=== PATIENT | female | born 1995 | race Caucasian/White ===

== ENCOUNTER 2020-05-09 16:46 | Emergency (ER) | payer BC, SELFPAY ==
--- NOTE | ~2020-05-09 | US_ITS ---
EXAMINATION: US OB <=14 wk fetus w TV DATE: 05/09/2020 19:06 INDICATION: Abdominal cramping. Bleeding. Approximately 6 weeks gestation. TECHNIQUE: Real-time transabdominal obstetric ultrasound. FINDINGS: No prior studies for comparison. The uterus measures 7.4 x 5.6 x 6.4 cm. There is an intrauterine gestational sac, with pole christin ntified. The crown rump length measures 0.26 cm, which correlates with a estimated gestational age o f 5 weeks 6 days. heart tones are identified measuring 113 BPM. Left ovary is unremarkable. R ight ovary not visualized. IMPRESSION: 1. SL IUP with an EGA of 5 weeks, 6 days (EDC by current ultrasound of 01/03/2021). Reviewed, dictated and finalized at location A. WORKER IMPRESSION: 1. SL IUP with an EGA of 5 weeks, 6 days (EDC by current ultrasound of ).
[2020-05-09 17:12] VITALS: BP 110/71; PULSE 81; RESP 18; TEMP 36.1; O2SAT 100
[2020-05-09 17:23] LABS: Basophils Absolute Auto 0.1 K/mm3 (0.0-0.1); Basophils Percent Auto 1.1 % (0.2-1.2); Eosinophils Absolute Auto 0.4 K/mm3 (0-0.3); Eosinophils Percent Auto 4.7 % (0-4.4); Hematocrit 34.6 % (37.0-47.0); Hemoglobin 11.5 g/dL (12.0-15.0); Immature Granulocyte Absolute 0.01 K/mm3 (0.00-0.031); Immature Granulocyte Percent A 0.1 % (0-0.5); Lymphocytes Absolute Auto 1.64 K/mm3 (0.9-3.2); Lymphocytes Percent Auto 21.6 % (18.3-44.2); Mean Corpuscular HGB Conc 33.2 g/dl (32-36); Mean Corpuscular Hemoglobin 29.9 pg (26-34); Mean Corpuscular Volume 89.9 fl (80-100); Mean Platelet Volume 10.9 fl (7.4-10.4); Monocytes Absolute Auto 0.6 K/mm3 (0.1-0.6); Monocytes Percent Auto 7.4 % (2.6-8.5); Neutrophils Absolute Auto 4.9 K/mm3 (1.3-6.7); Neutrophils Percent Auto 65.1 % (45.5-73.1); Platelet Count Result 225 k/mm3 (150-375); Red Blood Count 3.85 M/mm3 (4.2-5.4); Red Cell Distribution Width 12.4 % (11.5-14.5); White Blood Count 7.6 K/mm3 (4.5-10.0)
[2020-05-09 17:33] LABS: Prothrombin Time 13.6 Seconds (11.1-14.7)
--- NOTE | 2020-05-09 17:37 | ED.PREGNANCY ---
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 Reports she is about 6 weeks by LMP. Reports she had some cramping earlier today. Reports this afternoon she noted some bleeding which prompted her to be seen. Her OB is Dr. Villareal. Denies fever, vomiting, or dysuria. Related Data Home Medications Medication Instructions Recorded Confirmed vits no.130-ferrous fum 1 tablet PO DAILY 04/29/20 04/29/20 27 mg iron-folic acid 800 mcg tablet metoclopramide HCl 05/09/20 promethazine 05/09/20 pyridoxine (vitamin B6) 05/09/20 Allergies Allergy/AdvReac Type Severity Reaction Status Date / Time No Known Allergies Allergy Verified 05/09/20 17:16 Review of Systems Review of Systems: Narrative: CONSTITUTIONAL: Denies fever GASTROINTESTINAL: Reports pelvic cramping. GENITOURINARY: Denies dysuria or hematuria. All systems reviewed & are unremarkable except as noted in HPI and below PMFSH Past Medical History Medical History (Updated 05/09/20 @ 20:08 by Apple Minaya PA-C) Anxiety Back pain Chest pain Migraine Prolactinoma Tension headache Surgical History Surgical History Hx of tonsillectomy [place] teeth removed Social History Social History (Updated 01/21/20 @ 14:51 by Svetlana Hernández [facility]) Smoking status: Never smoker Alcohol intake: current Drinks per week: 1 Substance use: never Gender identity (if verbalized by the patient): Female Exam Narrative: Exam Narrative: GENERAL: Well-appearing, well-nourished, and in no acute distress. HEAD: Normocephalic, atraumatic. EYES: EOMI. CHEST: Clear to auscultation. No respiratory distress. No wheezes rales or rhonchi HEART: Regular rate and rhythm. No murmur heard. Normal peripheral pulses. ABDOMEN: Soft, nontender, nondistended, normal active bowel sounds. EXTREMITIES: Normal range of motion. No edema. SKIN: Warm, dry, no rash. NEURO: No focal deficits. Alert and oriented x3. PSYCH: Normal mood and affect PELVIC: Refused Course Vital Signs Vital signs: Vital Signs Temperature 97 F L 05/09/20 17:12 Pulse Rate 81 05/09/20 17:12 Respiratory Rate 18 05/09/20 17:12 Blood Pressure 110/71 05/09/20 17:12 Pulse Oximetry 100 05/09/20 17:12 Temperature 97 F L 05/09/20 17:12 Pulse Rate 84 05/09/20 17:50 Respiratory Rate 18 05/09/20 17:12 Blood Pressure 99/60 L 05/09/20 17:50 Pulse Oximetry 100 05/09/20 17:12 MDM - OB/Uterine Contractions MDM Narrative Medical decision making narrative: Patient presents the emergency department for vaginal spotting today. Is about 6 weeks by LMP. Patient is not orthostatic. CBC with hemoglobin of 11.5. Patient is A positive. UA with leuk esterase, 10-15 white blood cells and trace bacteria. Patient will be started on oral antibiotics. Ultrasound shows a single living IUP with an EGA of 5 weeks and 6 days. Patient updated on case findings. Patient refused pelvic exam, but reports no further bleeding in the ED. Spoke with Dr. Villareal about patient and work-up who would like to follow-up in clinic on Monday. Patient is stable and felt appropriate for further outpatient evaluation. She was given warnings to return to the ER Lab Data Attestation: I reviewed the patient's lab results. Result diagrams: 05/09/20 17:16 Labs: Lab Results 05/09/20 05/09/20 05/09/20 Range/Units 17:16 17:16 17:16 WBC 7.6 (4.5-10.0) K/mm3 RBC 3.85 L (4.2-5.4) M/mm3 Hgb 11.5 L (12.0-15.0) g/dL Hct 34.6 L (37.0-47.0) % MCV 89.9 (80-100) fl MCH 29.9 (26-34) pg MCHC 33.2 (32-36) g/dl RDW 12.4
[2020-05-09 17:49] VITALS: BP 94/57; BP 99/67; PULSE 77
[2020-05-09 17:50] VITALS: BP 99/60; PULSE 84
[2020-05-09 18:06] LABS: Add Urine Microscopic? YES; Appearance Urine Clear (Clear); Bacteria Urine Trace /hpf; Bilirubin Urine Negative (Negative); Blood Urine 2+ (Negative); Color Urine Colorless (Yellow); Glucose Urine UA Negative (Negative); Ketones Urine Negative (Negative); Leukocyte Esterase Ur 2+ LEU/UL (Negative); Mucus Urine Rare /lpf; Nitrate Urine Negative (Negative); Protein Urine Negative (Negative); RBC Urine 0-2 /hpf (0-2); Renal Epithelial Cells Urine Rare /hpf (None Seen); Specific Grav Ur 1.006 (1.001-1.035); Squamous Epithelial Cell Urine Few /hpf (Few); Urobilinogen Urine Negative mg/dL (<2.0)
[2020-05-09 20:25] VITALS: BP 117/80; PULSE 78; RESP 18; O2SAT 99
== END 2020-05-09 20:27 | disposition home or self-care (01) ==
PROVIDERS: Physician Assistant; Emergency Provider Emergency Medicine; PCP Family Medicine
DX: O20.0 Threatened abortion (principal); O26.891 Other specified pregnancy related conditions, first trimester; R82.71 Bacteriuria; Z3A.01 Less than 8 weeks gestation of pregnancy
CPT/HCPCS: 36415; 76801; 76817; 81001; 81025; 84702; 85025; 85461; 85610; 85730; 87077; 87086; 87088; 99284

== ENCOUNTER 2020-11-30 11:02 | Outpatient (CLI) | payer BC, SELFPAY ==
--- NOTE | ~2020-11-30 | XR_ITS ---
XR chest 2V DATE: 11/30/2020 11:28 INDICATION: Shortness of breath in TECHNIQUE: AP and lateral views with abdominal and pelvic shielding COMPARISON: 01/25/2017 PA chest FINDINGS: Normal heart size. No hilar or mediastinal enlargement. The lungs are clear of infiltrate o r consolidation. No pleural effusion or pulmonary vascular congestion or pneumothorax. IMPRESSION: Negative Reviewed, dictated and finalized at location A. IMPRESSION: Negative
== END 2020-11-30 11:03 | disposition home or self-care (01) ==
PROVIDERS: PCP Family Medicine; Visit Provider Student in an Organized Health Care Education/Training Program
DX: R06.02 Shortness of breath (principal); Z34.90 Encounter for supervision of normal pregnancy, unspecified, unspecified trimester; Z3A.00 Weeks of gestation of pregnancy not specified
CPT/HCPCS: 71046

== ENCOUNTER 2020-12-10 12:15 | Observation (INO) | payer BC, SELFPAY ==
[2020-12-10 12:46] VITALS: BP 107/71; PULSE 84
[2020-12-10 13:30] LABS: Add Urine Microscopic? YES; Appearance Urine Cloudy (Clear); Bilirubin Urine Negative (Negative); Blood Urine Negative (Negative); Color Urine Amber (Yellow); Glucose Urine UA Negative (Negative); Ketones Urine 1+ mg/dL (Negative); Leukocyte Esterase Ur Negative LEU/UL (NEGATIVE); Mucus Urine Rare /lpf; Nitrate Urine Negative (Negative); Protein Urine 1+ mg/dL (Negative); Specific Grav Ur 1.029 (1.001-1.035); Squamous Epithelial Cell Urine Many /hpf (Few); WBC Urine 0-3 /hpf (0-3)
--- NOTE | 2020-12-21 12:10 | P.PNOB_ITS ---
OB - Triage/Final Diagnosis Visit Information Comments/Additional reasons for admission: I have assessed the risk for this patient, Bea Durbin, and determined that she would benefit from observation care. Evaluation Laboratory results: Laboratory Tests 12/10/20 13:11 Urine Color Nikole Urine Appearance Cloudy H Urine pH 7.0 Ur Specific [place] 1.029 Urine Protein 1+ H Urine Glucose (UA) Negative Urine Ketones 1+ H Ur Blood (Man) Negative Urine Nitrate Negative Urine Bilirubin Negative Urine Urobilinogen 2.0 H Ur Leukocyte Esterase Negative Urine WBC 0-3 Ur Squamous Epith Cells Many H Urine Mucus Rare Final Diagnosis (1) Irregular uterine contractions: Code(s): O47.9 - False labor, unspecified Status: Acute
== END 2020-12-10 14:15 | disposition home or self-care (01) ==
PROVIDERS: Admitting Provider Student in an Organized Health Care Education/Training Program; Visit Provider Obstetrics & Gynecology
DX: O47.03 False labor before 37 completed weeks of gestation, third trimester (principal); Z3A.36 36 weeks gestation of pregnancy
CPT/HCPCS: 81001; 87077; 87086; 87088; G0378; G0379

== ENCOUNTER 2020-12-28 00:01 | Inpatient (IN) | payer BC, SELFPAY ==
[2020-12-28] VITALS (194 sets, daily range): BP systolic 81–147; BP diastolic 40–96; PULSE 67–250; RESP 16; TEMP 36.2–37.1; O2SAT 93–100; BMI 29.0
[2020-12-28 01:28] LABS: Basophils Percent Auto 0.4 % (0.2-1.2); Eosinophils Absolute Auto 0.2 K/mm3 (0-0.3); Eosinophils Percent Auto 2.4 % (0-4.4); Hematocrit 39.1 % (37.0-47.0); Hemoglobin 12.8 g/dL (12.0-15.0); Immature Granulocyte Absolute 0.03 K/mm3 (0.00-0.031); Immature Granulocyte Percent A 0.4 % (0-0.5); Lymphocytes Absolute Auto 1.52 K/mm3 (0.9-3.2); Lymphocytes Percent Auto 19.4 % (18.3-44.2); Mean Corpuscular HGB Conc 32.7 g/dl (32-36); Mean Corpuscular Hemoglobin 30.3 pg (26-34); Mean Corpuscular Volume 92.4 fl (80-100); Mean Platelet Volume 11.6 fl (7.4-10.4); Monocytes Absolute Auto 0.7 K/mm3 (0.1-0.6); Monocytes Percent Auto 9.3 % (2.6-8.5); Neutrophils Absolute Auto 5.3 K/mm3 (1.3-6.7); Neutrophils Percent Auto 68.1 % (45.5-73.1); Platelet Count Result 194 k/mm3 (150-375); Red Blood Count 4.23 M/mm3 (4.2-5.4); Red Cell Distribution Width 16.7 % (11.5-14.5); White Blood Count 7.8 K/mm3 (4.5-10.0)
[2020-12-28] MEDS: miSOPROStol 25 MCG TABLET VAGINAL (01:45)
[2020-12-28] MEDS: LACTATED RINGERS 1,000 ML 125 ML IV CONT ×3 (02:09→12:19)
[2020-12-28] MEDS: AMPICILLIN 2 GM/NS 100 ML 2 GM/100 ML BAG IVPB (02:10)
--- NOTE | 2020-12-28 02:24 | LDADM ---
This patient, Bea Durbin, was admitted to Labor/Delivery/Recovery 107 on 12/28/20 at 00:01. Plans for labor, pain management and were discussed with patient. Patient/family oriented to hospital policies and general routines including ID bracelet, bed and alarms, visiting hours, pain management, procedures, bathroom and other care routines, personal items, smoking policy, room service/diet and guest tray routines, infant security routines, and visiting hours. Patient/Family are encouraged to report perceived risks to care and to ask questions if they do not understand what they are told or what they should do. See OBIX for further documentation.
[2020-12-28] MEDS: AMPICILLIN 1 GM/NS 50 ML 1 GM/50 ML BAG IVPB ×3 (06:29→14:01)
--- NOTE | 2020-12-28 07:25 | WPDHPUPDATE1 ---
History and Physical Update Update Date/Time: 12/28/20 07:25 25 yo at 39w1 who presents for elective IOL. Pt endorses good FM. She reports occasional contractions. She denies any leakage of fluid. Her is uncomplicated thus far. History and Physical has been reviewed, including an updated exam of the patient. There are NO changes in the patient's condition. Risks, benefits, and alternatives have been discussed and questions answered. Patient agrees to proceed with procedure. A/P: 25 yo at 39w1d who presents for IOL admit to L&D routine admission orders Rh+ GBS UTI +, will give PCN in labor FHT cat 1 plan for cytotec IOL
[2020-12-28 08:36] LABS: Rapid Plasma Reagin Non-Reactive (NonReactive)
--- NOTE | 2020-12-28 08:37 | PC.NURSE ---
[id number]- was called around 0620 by Tiago SOLIS to inform pt did not tolerate first placement of cytotec well and she was unsure if it was placed correctly. Order received to hold second dose until pt gets an epidural. Anesthesia was informed of order and will place it in order of need. aware.
--- NOTE | 2020-12-28 09:51 | WPDANESEPPF ---
Anes - Initial Pre Proc Eval Date/Time: 12/28/20 09:51 Surgeon: Rex Villareal MD Pre Op Diagnosis: IOL Patient Data Age: 25 Gender: F Height: 1.57 m Weight: 72 kg Last Vital Signs Pulse 76 12/28/20 09:15 BP 98/60 L 12/28/20 09:15 Pulse Ox 98 12/28/20 09:27 Allergies Allergy/AdvReac Type Severity Reaction Status Date / Time No Known Allergies Allergy Verified 05/09/20 17:16 Home Medications Medication Instructions Recorded Confirmed Type vits no.130-ferrous fum 1 tablet PO DAILY 04/29/20 12/24/20 History 27 mg iron-folic acid 800 mcg tablet ergocalciferol (vitamin D2) 1,250 mcg PO WEEKLY 12/24/20 12/24/20 History [Vitamin D2] sertraline 25 mg PO DAILY 12/24/20 12/24/20 History Laboratory Tests 12/28/20 12/28/20 12/28/20 01:11 01:11 01:11 WBC 7.8 K/mm3 K/mm3 (4.5-10.0) RBC 4.23 M/mm3 M/mm3 (4.2-5.4) Hgb 12.8 g/dL g/dL (12.0-15.0) Hct 39.1 % % (37.0-47.0) MCV 92.4 fl fl (80-100) MCH 30.3 pg pg (26-34) MCHC 32.7 g/dl g/dl (32-36) RDW 16.7 % H % (11.5-14.5) Plt Count 194 k/mm3 k/mm3 (150-375) MPV 11.6 fl H fl (7.4-10.4) Immature Gran % (Auto) 0.4 % % (0-0.5) Neut % (Auto) 68.1 % % (45.5-73.1) Lymph % (Auto) 19.4 % % (18.3-44.2) Summers % (Auto) 9.3 % H % (2.6-8.5) Eos % (Auto) 2.4 % % (0-4.4) Baso % (Auto) 0.4 % % (0.2-1.2) Lymph # (Auto) 1.52 K/mm3 K/mm3 (0.9-3.2) Summers # (Auto) 0.7 K/mm3 H K/mm3 (0.1-0.6) Eos # (Auto) 0.2 K/mm3 K/mm3 (0-0.3) Baso # (Auto) 0.0 K/mm3 K/mm3 (0.0-0.1) Abs Immat Gran (auto) 0.03 K/mm3 K/mm3 (0.00-0.031) Absolute Neuts (auto) 5.3 K/mm3 K/mm3 (1.3-6.7) Absolute Nucleated RBC 0.0 K/mm3 K/mm3 (0.0-0.012) Nucleated RBC % 0.0 % % (0.0-0.2) RPR Non-reactive (NonReactive) Blood Type A Positive Antibody Screen Negative Patient hx anesthesia problems: none Family hx anesthesia problems: none PMFSH Past Medical History Medical History (Updated 12/21/20 @ 12:10 by Chidi Laws MD) Anxiety Back pain Chest pain Irregular uterine contractions Migraine Prolactinoma Tension headache Surgical History Surgical History Hx of tonsillectomy [place] teeth removed Family History Family History (Updated 12/24/20 @ 15:27 by Aniceto Boyle RN) Other No pertinent family history Social History Social History (Updated 01/21/20 @ 14:51 by Svetlana Hernández [facility]) Smoking status: Never smoker Alcohol intake: current Drinks per week: 1 Alcohol use details: Wine Substance use: never Gender identity (if verbalized by the patient): Female Spiritual care concerns: No Anes - Eval Final PreProcedure Day of Procedure 12/28/20 09:52 Patient weight: overweight Heart: regular rate and rhythm Lungs: clear to auscultation and normal air movement Airway: Mallampati scale class II Neurological: alert and oriented Last oral intake: >/= 8 hours ASA classification: II Emergent: no Anesthetic plan: proceed Anesthesia type and monitoring: regional epidural Informed Consent: The patient's anesthetic plan and its attendant risks and benefits were discussed with the patient/family/POA. Questions were solicited and answers provided to the satisfaction of the patient/family/POA.
[2020-12-28] MEDS: ONDANSETRON INJ 4 MG/2 ML VIAL IV PUSH (10:59)
[2020-12-28] MEDS: OXYTOCIN 30 UNITS/NS 500 ML 30 UNITS/500 ML BAG 6 UNITS IV CONT (11:43)
--- NOTE | 2020-12-28 12:10 | PM.OBPNLAB ---
Pain Control Date/time seen: 12/28/20 12:10 Pain control: epidural Comments: pt comfortable with epidural Pelvic Exam Dilation (cm): 2 Effacement (%): 70 station: -3 Amniotic membrane status: Intact Contractions Contraction frequency: 4 Contraction pattern: Regular Status status: Category l Assessment and Plan Comments: cervical balloon was placed and put on traction. Pitocin augmentation started.
--- NOTE | 2020-12-28 18:04 | PM.OBPRVD ---
OB - Delivery Note Procedure Delivery date: 12/28/20 Procedure: Patient pushed for a spontaneous vaginal delivery. The fetus was delivered atraumatically and placed on the maternal abdomen. The cord was clamped and cut after 1 minute of life. The cord was double clamped and cut and a segment of cord was collected for cord gases. Cord blood was collected for blood type and Coomb's testing. The placenta delivered spontaneously and was noted to be intact. The perineum was inspected and there was a deep 2nd degree perineal laceration. The rectal sphincter was examined and noted to be intact. The deep space of the laceration was re-approximated with 3 interrupted 2-0 vicryl sutures. The remainder of the laceration was repaired with 3-0 vicryl in the usual fashion. The uterus was firm and good hemostasis was noted. The patient and fetus were stable in the delivery room. Intrapartal events: None Induction method: per misoprostol protocol Delivery augmentation: rupture of membranes and pitocin Delivery monitor: external FHT Route of delivery: Episiotomy description: None Laceration Description: Perineal - 2nd Degree and Vaginal - 2nd Degree Delivery repair: vicryl Specimen: No Quantitative Blood Loss (ml): 250 Anesthesia type: Epidural Disposition: floor () Complications: No immediate complications Baby Date of : 12/28/20 Time of : 17:35 Weeks of gestation at delivery: 39 Infant gender: Male Weight (pounds): 8 Weight (ounces): 11 presentation: vertex position: Right Occiput Anterior Placenta delivery description: Spontaneous cord vessel description: 3 Vessels score one minute: 8 score five minutes: 9
[2020-12-28] MEDS: OXYTOCIN 30 UNITS/NS 500 ML 30 UNITS/500 ML BAG 125 UNITS IV CONT (18:29)
[2020-12-28] MEDS: IBUPROFEN 600 MG TABLET PO (19:00)
[2020-12-28] MEDS: HYDROcodone/acetaminophen (*CRX) 10-325 MG TABLET 1 TAB PO (21:10)
--- NOTE | 2020-12-28 21:22 | OBPPTRN ---
Patient transferred to post room #282 via wheelchair. Support person present. Oriented to unit, room, information board, rooming in, admission packet and security measures. Patient verbalizes understanding.
[2020-12-28] MEDS: SERTRALINE HCL 25 MG TABLET PO (21:59)
[2020-12-29] VITALS: BP 98/63; PULSE 57; RESP 16; TEMP 37; O2SAT 96
[2020-12-29] MEDS: IBUPROFEN 600 MG TABLET PO ×3 (02:06→13:48)
[2020-12-29] MEDS: HYDROcodone/acetaminophen (*CRX) 10-325 MG TABLET 1 TAB PO (03:07)
[2020-12-29 04:30] VITALS: BP 90/50; PULSE 75; RESP 16; TEMP 36.8; O2SAT 95
[2020-12-29 05:58] LABS: Hematocrit 34.3 % (37.0-47.0)
--- NOTE | 2020-12-29 07:51 | PM.OBDSVD ---
DS: Admitting Diagnosis Admitting Diagnosis intrauterine at term elective induction of labor OB - DS: Summary OB Procedures : None OB Procedures Intrapartum: Spontaneous Vag Delivery OB Procedures: : None Status at Discharge Functional status at discharge: independent ambulation Overall status at discharge: patient is back to baseline Time Spent with Patient Time attestation: Total time spent providing and/or coordinating discharge services: Time spent: Less than 30 minutes Exam Const: General: comfortable and no acute distress Resp: Effort & Inspection: normal respiratory effort Auscultation: clear to auscultation bilaterally Cardio: Rate: regular rate GI: GI Palp: Yes Soft to palpation Auscultation: normal bowel sounds Other: Fundus firm below umbilicus Psych: Appearance: grossly normal Mental Status: mental status grossly normal Affect: normal affect DS: Data Data Completed and Pending Labs on day of discharge: Labs from last 24 hours 12/29/20 12/28/20 05:04 01:11 Hgb 11.0 L Hct 34.3 L RPR Non-reactive Discharge Plan Discharge Consulting providers: Magan Johnson Discharging Clinician: Rex Villareal Patient Disposition: Home, Self-Care Activity: as tolerated and pelvic rest Diet: regular Discharge Instructions: call or return for temperature >100.4, bleeding >2 pads/hr for 2 hrs, pain not controlled with medications, signs/symptoms of mastitis Patient Instructions: Antibiotic Form, Vaginal Delivery (DC) Stand Alone Forms: General Discharge Information Follow-up/Referrals: Rex Villareal MD [Physician] - 4 Weeks Discharge Medications: New hydrocodone-acetaminophen 5-325 mg tablet 1 tablet PO Q6H PRN (Reason: pain) Qty: 28 RF: 0 docusate sodium 100 mg Capsule 100 mg PO BID PRN (Reason: Constipation) Qty: 60 RF: 0 ibuprofen 600 mg Tablet 600 mg PO Q6H PRN (Reason: Cramping) Qty: 30 RF: 0 acetaminophen [Mapap (acetaminophen)] 325 mg Tablet 650 mg PO Q6H PRN (Reason: Mild Pain (1-3) Or Headache) Qty: 30 RF: 0 Continued Vitamin 27 mg iron- 800 mcg tablet 1 tablet PO DAILY RF: 0 sertraline 25 mg Tablet 25 mg PO DAILY RF: 0 ergocalciferol (vitamin D2) [Vitamin D2] 1,250 mcg (50,000 unit) Capsule 1,250 mcg PO WEEKLY RF: 0 Date of admission: 12/28/20 00:01 Primary Care Provider: PHYSICIAN,EXERCISE INSTRUCTOR Admitting Provider: Rex Villareal Attending physician on admission: Rex Villareal Condition: Stable
[2020-12-29 08:05] VITALS: BP 90/57; PULSE 82; RESP 16; TEMP 36.2; O2SAT 97
[2020-12-29] MEDS: HYDROcodone/acetaminophen (*CRX) 5-325 MG TABLET 1 TAB PO ×2 (08:33→13:49)
[2020-12-29] MEDS: DOCUSATE SODIUM 100 MG CAPSULE PO (08:34)
[2020-12-29] MEDS: WITCH HAZEL 40 PADS 1 PAD TOPICAL (08:34)
--- NOTE | 2020-12-29 09:15 | WPDANLDPN2 ---
Anes-Prog Note L&D Date/Time: 12/29/20 09:15 Comfortable throughout: labor and delivery Neuraxial method: epidural Epidural/Spinal procedure site: clean & non-tender Neuro status: Neuro function grossly intact. Cardiovascular status: normal Respiratory status: normal Airway patency: baseline Mental status: baseline Post-Op hydration status: normal Vital Signs: Last Vital Signs Temp 36.8 C 12/29/20 04:30 Pulse 75 12/29/20 04:30 Resp 16 12/29/20 04:30 BP 90/50 L 12/29/20 04:30 Pulse Ox 95 12/29/20 04:30 Pain score (VAS): 0 I/O: Intake & Output 12/28/20 12/29/20 12/29/20 23:59 07:59 15:59 Intake Total 500 Output Total 325 Balance 175 Post-procedural complaints: none Patient feedback: Patient satisfied with anesthetic care.
[2020-12-29 12:09] VITALS: BP 82/43; PULSE 85; RESP 16; TEMP 36.4; O2SAT 97
[2020-12-29] MEDS: NEOMYCIN/POLYMYXIN/BACITRACIN OINTMENT 15 GM TUBE 1 APPLIC TOPICAL (13:48)
--- NOTE | 2020-12-29 15:00 | PC.NURSE ---
Patient viewed the discharge video Mother & Baby Care, The First Two Weeks . Patient was given the opportunity and encouraged to ask questions. Patient verbalized understanding of information shared and has been given the mother/baby guide for home reference.
[2020-12-29 16:00] VITALS: BP 114/78; PULSE 68; RESP 18; TEMP 36.6
--- NOTE | 2020-12-29 16:08 | PC.NURSE ---
Self care and infant care discharge instructions given including follow up visit date and time. Pt. verbalized understanding. No questions or concerns voiced. Very pleasant and cooperative. FOB at side.
[2020-12-31 08:32] VITALS: BP 96/59; PULSE 84; RESP 18; TEMP 37.3
== END 2020-12-29 18:20 | disposition home or self-care (01) | DRG 807 ==
LOC: ANHLDR 00:13 → ANHOB2 22:36
PROVIDERS: Admitting Provider Student in an Organized Health Care Education/Training Program; Visit Provider Student in an Organized Health Care Education/Training Program
DX: O99.824 Streptococcus B carrier state complicating childbirth (principal); Z37.0 Single live birth; Z3A.39 39 weeks gestation of pregnancy; O70.1 Second degree perineal laceration during delivery; O77.0 Labor and delivery complicated by meconium in amniotic fluid; O99.344 Other mental disorders complicating childbirth; F41.9 Anxiety disorder, unspecified; O99.62 Diseases of the digestive system complicating childbirth; K21.9 Gastro-esophageal reflux disease without esophagitis
CPT/HCPCS: 36415; 85014; 85018; 85025; 86592; 86850; 86900; 86901; A9270; J0290; J2405; J2590; J2795; J7120

== ENCOUNTER 2021-10-17 13:08 | Emergency (ER) | payer OTHER, SELFPAY ==
[2021-10-17 13:16] VITALS: BP 102/64; PULSE 89; RESP 18; TEMP 36.4; O2SAT 100
--- NOTE | 2021-10-17 13:16 | ED.URI ---
HPI - URI/Sore Throat General Chief Complaint: Upper Respiratory Infection Stated Complaint: sinus issue Time Seen by Provider: 10/17/21 13:18 Source: patient and RN notes reviewed Mode of arrival: ambulatory Limitations: no limitations History of Present Illness HPI Narrative: 26-year-old female presents to the [facility] with complaints of sinus congestion for 3-4 days. Has tried an unknown [id number] product 1 day without relief. Denies fevers. Denies chest pain or abdominal pain. No shortness of breath. Denies cough. Reports sinus congestion and bilateral ear pressure. Has a history of tubes as a child MD elicited complaint: nasal congestion Onset (ago): day(s) (3-4) Description of mucous: clear Related Data Home Medications Medication Instructions Recorded Confirmed No Home Medications 10/17/21 10/17/21 Allergies Allergy/AdvReac Type Severity Reaction Status Date / Time No Known Allergies Allergy Verified 10/17/21 13:16 Review of Systems Review of Systems: All systems reviewed & are unremarkable except as noted in HPI and below Constitutional: Constitutional: Reports no additional constitutional complaints, Denies chills and Denies fever(s) Eyes: Eyes: Reports no additional eye complaints ENT: Reports as per HPI, Reports nasal congestion and Denies sore throat Cardiovascular: Cardiovascular: Reports no additional cardiovascular complaints Respiratory: Respiratory: Reports no additional respiratory complaints Gastrointestinal: Gastrointestinal: Reports no additional gastrointestinal complaints Musculoskeletal: Musculoskeletal: Reports no additional musculoskeletal complaints Integumentary/Breasts: Skin/Breast: Reports system reviewed and no additional complaints, except as docu Neurologic: Reports system reviewed and no additional complaints, except as documented Psychiatric: Psychiatric: Reports no additional psychiatric complaints Allergic/Immunologic: Allergic/Immunologic: Reports no additional allergic/immunologic complaints [facility] Past Medical History Medical History Anxiety Back pain Chest pain Irregular uterine contractions Migraine Prolactinoma Tension headache Surgical History Surgical History Hx of tonsillectomy [place] teeth removed Family History Family History Other No pertinent family history Social History Social History Alcohol intake: current Drinks per week: 1 Alcohol use details: Wine Substance use: never Gender identity (if verbalized by the patient): Female Spiritual care concerns: No Comments At the time of my signature, I reviewed and agree with the nursing past medical, surgical, social, and family history. There is no relevant family history pertinent to the patient complaint. Exam Const: General: healthy appearing, no acute distress and alert Nutritional Appearance: well nourished Orientation/consciousness: patient oriented x3 Limitations: no limitations HENMT: Head: normal to inspection Ears: external ears normal, EAC's normal and TM abnormal with fluid behind the TM bilateral and scarred bilateral (Tubes as a child); not erythematous and with no loss of landmarks Throat: uvula midline, postnasal drainage and tonsils absent Eyes: General: appearance normal, both eyes and all related structures Pupils: Equal, round and reactive pupils present Neck: Neck: normal visual inspection, no lymphadenopathy and no meningeal signs Chest: Chest palpation & inspection: normal inspection of the chest Resp: Effort & Inspection: normal respiratory effort and no use of accessory muscles Auscultation: clear to auscultation bilaterally, no crackles, no rales, no rhonchi and no wheezes Cardio: Rate: regular rate Rhy
[2021-10-17 13:18] VITALS: BP 102/64; PULSE 89; RESP 18; TEMP 36.4; O2SAT 100
== END 2021-10-17 13:46 | disposition home or self-care (01) ==
PROVIDERS: Emergency Provider Nurse Practitioner; PCP Family Medicine
DX: J06.9 Acute upper respiratory infection, unspecified (principal)
CPT/HCPCS: 87804; 99212; G0463

== ENCOUNTER 2022-03-20 10:31 | Outpatient (CLI) | payer OTHER, SELFPAY ==
--- NOTE | ~2022-03-20 | MR_ITS ---
EXAMINATION: MR pituitary wo/w con DATE: 03/20/2022 11:30 INDICATION: Prolactinoma. Migraine headache. TECHNIQUE: Magnetic resonance imaging (MRI) of the brain and brainstem was performed without and with 13 mL MultiHance intravenous contrast. COMPARISON: Brain MRI 11/24/2016, head CT 11/24/2016 FINDINGS: The pituitary is normal in size with height of 5 mm. The infundibulum is at the midline. Th ere is no intracranial hemorrhage, acute infarction, or abnormal intracranial mass lesion. The ventri cles are normal in size. There is mild mucosal thickening in the ethmoid sinuses. The orbits are norm al. The mastoid air cells are normal. IMPRESSION: 1. Normal pituitary. Normal brain. Reviewed, dictated and finalized at location A. ER MACHINE HAND
== END 2022-03-20 10:32 | disposition home or self-care (01) ==
PROVIDERS: PCP Family Medicine; Visit Provider Family Medicine
DX: E23.0 Hypopituitarism (principal); D35.2 Benign neoplasm of pituitary gland
CPT/HCPCS: 70553; A9577

== ENCOUNTER 2022-08-08 13:20 | Outpatient (CLI) | payer OTHER, SELFPAY ==
[2022-08-08 14:55] LABS: Beta HCG Quantitative < 2.39 mIU/ML
== END 2022-08-08 13:21 | disposition home or self-care (01) ==
LOC: ANHLAB 13:22
PROVIDERS: PCP Family Medicine; Visit Provider Student in an Organized Health Care Education/Training Program
DX: N92.6 Irregular menstruation, unspecified (principal)
CPT/HCPCS: 36415; 84702

== ENCOUNTER 2022-11-03 09:31 | Emergency (ER) | payer OTHER, SELFPAY ==
--- NOTE | ~2022-11-03 | XR_ITS ---
XR hand LT 2V 11/03/2022 11:24 INDICATION: Possible foreign body left hand PROCEDURE: 3 views left hand COMPARISON: No prior studies FINDINGS: Fracture, dislocation or subluxation is not identified. The soft tissues appear within norm al limits. No foreign bodies are identified. IMPRESSION: 1: NO ACUTE BONE OR JOINT ABNORMALITY IDENTIFIED. Reviewed, dictated and finalized at location L.
[2022-11-03 09:34] VITALS: BP 108/59; PULSE 81; RESP 18; TEMP 36.6; O2SAT 99
[2022-11-03 10:57] LABS: HIV 1/2 Ab P24 Ag Result Negative (Negative)
[2022-11-03] MEDS: TETANUS,DIPHTHERIA,AC PERTUSSIS ADULT (0.5 ML) BOOSTRIX IM (11:09)
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
[2022-11-03] MEDS: ONDANSETRON HCL ODT 4 MG TABLET PO (11:37)
[2022-11-03] MEDS: HYDROcodone/acetaminophen (*CRX) 5-325 MG TABLET 1 TAB PO (11:37)
[2022-11-03 12:18] LABS: Basophils Absolute Auto 0.1 K/mm3 (0.0-0.1); Basophils Percent Auto 1.6 % (0.2-1.2); Eosinophils Absolute Auto 0.4 K/mm3 (0-0.3); Eosinophils Percent Auto 6.3 % (0-4.4); Hematocrit 41.3 % (37.0-47.0); Hemoglobin 13.3 g/dL (12.0-15.0); Immature Granulocyte Absolute 0.01 K/mm3 (0.00-0.031); Immature Granulocyte Percent A 0.2 % (0-0.5); Lymphocytes Percent Auto 26.2 % (18.3-44.2); Mean Corpuscular HGB Conc 32.2 g/dl (32-36); Mean Corpuscular Hemoglobin 29.6 pg (26-34); Mean Corpuscular Volume 91.8 fl (80-100); Mean Platelet Volume 11.9 fl (7.4-10.4); Monocytes Absolute Auto 0.3 K/mm3 (0.1-0.6); Monocytes Percent Auto 5.4 % (2.6-8.5); Neutrophils Absolute Auto 3.5 K/mm3 (1.3-6.7); Neutrophils Percent Auto 60.3 % (45.5-73.1); Platelet Count Result 227 k/mm3 (150-375); White Blood Count 5.7 K/mm3 (4.5-10.0)
[2022-11-03 12:26] LABS: Alanine Aminotransferase 20 U/L (6-35); Alkaline Phosphatase 69 U/L (38-126); Anion Gap 6 mmol/L (8-16); Aspartate Amino Transferase 21 U/L (14-36); Bilirubin,Total 0.4 mg/dL (0.2-1.3); Blood Urea Nitrogen 6 mg/dL (7-17); Calcium 8.4 mg/dL (8.4-10.2); Carbon Dioxide 30 mmol/L (22-30); Chloride 104 mmol/L (98-107); Estimated CRCL calculation 78 ml/min; Estimated Glomerular Filt Rate > 60; Glucose 88 mg/dL (65-110); Potassium 4.1 mmol/L (3.4-5.0); Sodium 140 mmol/L (137-145)
[2022-11-03] MEDS: RALTEGRAVIR 400 MG TABLET PO (13:15)
[2022-11-03] MEDS: EMTRICITABINE-TENOFOVIR 100 MG-150 MG TABLET 2 TAB PO (13:15)
[2022-11-03 14:01] LABS: Hepatitis C Virus Antibody Negative (Negative)
[2022-11-03 17:20] LABS: Hepatitis B Surface Anti Res Indeterminate
[2022-11-03 17:21] LABS: Hepatitis C Virus Antibody 0.01 S/C
== END 2022-11-03 13:22 | disposition home or self-care (01) ==
PROVIDERS: Emergency Medicine; Emergency Provider Physician Assistant; PCP Family Medicine
DX: L03.114 Cellulitis of left upper limb (principal); S61.432A Puncture wound without foreign body of left hand, initial encounter; Z23 Encounter for immunization; F41.9 Anxiety disorder, unspecified; Z90.49 Acquired absence of other specified parts of digestive tract; W46.1XXA Contact with contaminated hypodermic needle, initial encounter
CPT/HCPCS: 36415; 73120; 80053; 81025; 85025; 86703; 86706; 86803; 90471; 90715; 99283; A9270; G0432

== ENCOUNTER 2022-11-13 22:43 | Emergency (ER) | payer OTHER, SELFPAY ==
[2022-11-13 22:50] VITALS: BP 94/61; PULSE 108; RESP 14; TEMP 37.2; O2SAT 92
[2022-11-13 23:02] LABS: Basophils Absolute Auto 0.1 K/mm3 (0.0-0.1); Basophils Percent Auto 0.8 % (0.2-1.2); Eosinophils Absolute Auto 0.1 K/mm3 (0-0.3); Eosinophils Percent Auto 1.1 % (0-4.4); Hematocrit 38.6 % (37.0-47.0); Hemoglobin 12.6 g/dL (12.0-15.0); Immature Granulocyte Absolute 0.02 K/mm3 (0.00-0.031); Immature Granulocyte Percent A 0.2 % (0-0.5); Lymphocytes Absolute Auto 0.46 K/mm3 (0.9-3.2); Lymphocytes Percent Auto 4.2 % (18.3-44.2); Mean Corpuscular HGB Conc 32.6 g/dl (32-36); Mean Corpuscular Hemoglobin 28.9 pg (26-34); Mean Corpuscular Volume 88.5 fl (80-100); Mean Platelet Volume 10.6 fl (7.4-10.4); Monocytes Absolute Auto 0.7 K/mm3 (0.1-0.6); Monocytes Percent Auto 5.9 % (2.6-8.5); Neutrophils Absolute Auto 9.7 K/mm3 (1.3-6.7); Neutrophils Percent Auto 87.8 % (45.5-73.1); Platelet Count Result 220 k/mm3 (150-375); Red Blood Count 4.36 M/mm3 (4.2-5.4); Red Cell Distribution Width 12.9 % (11.5-14.5)
[2022-11-13 23:16] LABS: Alanine Aminotransferase 24 U/L (6-35); Albumin Level 4.1 g/dL (3.5-5.1); Alkaline Phosphatase 81 U/L (38-126); Anion Gap 8 mmol/L (8-16); Aspartate Amino Transferase 26 U/L (14-36); Bilirubin,Total 0.5 mg/dL (0.2-1.3); Blood Urea Nitrogen 9 mg/dL (7-17); Calcium 8.9 mg/dL (8.4-10.2); Carbon Dioxide 24 mmol/L (22-30); Chloride 104 mmol/L (98-107); Estimated CRCL calculation 82 ml/min; Estimated Glomerular Filt Rate > 60; Glucose 108 mg/dL (65-110); Potassium 3.7 mmol/L (3.4-5.0); Sodium 136 mmol/L (137-145)
[2022-11-13 23:33] LABS: Appearance Urine Cloudy (Clear); Bacteria Urine None Seen /hpf; Bilirubin Urine Negative (Negative); Blood Urine Negative (Negative); Color Urine Yellow (Yellow); Glucose Urine UA Negative (Negative); Ketones Urine Negative (Negative); Leukocyte Esterase Ur 1+ LEU/UL (Negative); Need Manual Microscopic Reviewed; Nitrate Urine Negative (Negative); Non Pathogenic Casts 0-2; Protein Urine Negative (Negative); RBC Urine 0-2 /hpf (0-2); Specific Grav Ur 1.004 (1.001-1.035); Squamous Epithelial Cell Urine None seen /hpf (Few); Urobilinogen Urine 0.2 mg/dL (<2.0); WBC Urine 0-5 /hpf; pH Urine 6.5 (5.0-9.0)
[2022-11-13 23:34] LABS: Add Urine Microscopic? YES
--- NOTE | 2022-11-13 23:56 | PC.NURSE ---
pt. to hotel front desk agent reporting she feels better. pt. states I am just going to follow up w/ pcp. Pt. ambulated out of ed w/ steady gait. NAD
== END 2022-11-14 00:51 | disposition left against medical advice (07) ==
PROVIDERS: Emergency Provider Emergency Medicine; PCP Family Medicine
DX: R10.9 Unspecified abdominal pain (principal)
CPT/HCPCS: 36415; 80053; 81001; 81025; 85025; 99199

== ENCOUNTER 2022-11-14 14:46 | Emergency (ER) | payer OTHER, SELFPAY ==
--- NOTE | ~2022-11-14 | CT_ITS ---
EXAMINATION: CT abdomen pelvis w con DATE: 11/14/2022 18:18 INDICATION: Right flank pain radiating into abdomen TECHNIQUE: Computed tomography (CT) of the abdomen and pelvis was performed with 100 CC Omnipaque 350 intravenous contrast. Automated exposure control and iterative reconstruction technique were employe d. Exam dose: 249.62 mGy-cm total exam DLP. COMPARISON: None. FINDINGS: The lung bases are clear. Normal heart size. No pericardial or pleural effusion. Right-sided pericardial cyst measures up to approximately 2.7 x 3.6 cm. Status post cholecystectomy. No hepatic, splenic, pancreatic, and adrenal or renal space-occupying mass lesion is evident. No bile duct or pancreatic duct dilatation. No urinary tract calculus or hydroureteronephrosis. Normal caliber of the abdominal aorta. No intraperitoneal or retroperitoneal or pelvic mass lesion or adenopathy or ascites. Retroverted uterus. 1.9 cm right adnexal cyst. Normal appendix. No bowel obstruction or free air. IMPRESSION: Echogenic calculus or hydroureteronephrosis Normal appendix 1.9 cm right adnexal cyst Reviewed, dictated and finalized at Location A. Reviewed, dictated and finalized at location A.
--- NOTE | ~2022-11-14 | US_ITS ---
US transvaginal DATE: 11/14/2022 20:11 INDICATION: Right pelvic pain. Evaluate for torsion. TECHNIQUE: Real-time imaging via transvaginal approach COMPARISON: None FINDINGS: Uterus measures 7.6 cm approximate height, 4.5 cm AP dimension. The central endometrial ech o complex measures approximately 5 mm AP dimension, normal. Right ovary measures 1.4 x 2.4 x 1.5 cm, with follicles present. There is vascular flow. The left ovary measures 1.6 x 2.3 x 1.5 cm, with follicles present and with vascular flow. Trace likely physiologic pelvic free fluid. IMPRESSION: Normal examination Reviewed, dictated and finalized at Location A. Reviewed, dictated and finalized at location A. IMPRESSION: Normal examination
[2022-11-14 14:59] VITALS: BP 103/72; PULSE 88; RESP 16; TEMP 37.2; O2SAT 100
[2022-11-14 15:30] LABS: Basophils Absolute Auto 0.1 K/mm3 (0.0-0.1); Basophils Percent Auto 0.6 % (0.2-1.2); Eosinophils Percent Auto 0.5 % (0-4.4); Hematocrit 36.7 % (37.0-47.0); Hemoglobin 12.1 g/dL (12.0-15.0); Immature Granulocyte Absolute 0.03 K/mm3 (0.00-0.031); Immature Granulocyte Percent A 0.4 % (0-0.5); Lymphocytes Percent Auto 10.9 % (18.3-44.2); Mean Corpuscular Hemoglobin 29.2 pg (26-34); Mean Corpuscular Volume 88.4 fl (80-100); Mean Platelet Volume 10.6 fl (7.4-10.4); Monocytes Percent Auto 12.3 % (2.6-8.5); Neutrophils Absolute Auto 6.2 K/mm3 (1.3-6.7); Neutrophils Percent Auto 75.3 % (45.5-73.1); Platelet Count Result 209 k/mm3 (150-375); Red Blood Count 4.15 M/mm3 (4.2-5.4); White Blood Count 8.2 K/mm3 (4.5-10.0)
[2022-11-14 15:45] LABS: Alanine Aminotransferase 35 U/L (6-35); Alkaline Phosphatase 80 U/L (38-126); Anion Gap 7 mmol/L (8-16); Aspartate Amino Transferase 43 U/L (14-36); Bilirubin,Total 0.7 mg/dL (0.2-1.3); Blood Urea Nitrogen 10 mg/dL (7-17); Calcium 8.3 mg/dL (8.4-10.2); Carbon Dioxide 24 mmol/L (22-30); Chloride 106 mmol/L (98-107); Estimated CRCL calculation 82 ml/min; Estimated Glomerular Filt Rate > 60; Glucose 97 mg/dL (65-110); Lipase 50 U/L (23-300); Potassium 3.5 mmol/L (3.4-5.0); Sodium 137 mmol/L (137-145)
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
[2022-11-14] MEDS: SODIUM CHLORIDE 0.9% IV 1,000 ML 999 ML IV CONT ×2 (18:02→20:06)
[2022-11-14] MEDS: ONDANSETRON INJ 4 MG/2 ML VIAL IV PUSH (18:02)
[2022-11-14] MEDS: MORPHINE SULFATE (*CRX) 4 MG/ML INJ IV PUSH (18:02)
[2022-11-14 18:05] VITALS: BP 90/58; PULSE 88; RESP 15; O2SAT 100
--- NOTE | 2022-11-14 18:14 | PC.NURSE ---
Pt to CT scan via stretcher at this time, fluids infusing.
[2022-11-14] MEDS: KETOROLAC 15 MG/ML VIAL (*BKC) IV PUSH (19:25)
[2022-11-14 19:28] VITALS: BP 92/60; PULSE 78; RESP 16; TEMP 36.3; O2SAT 100
[2022-11-14 19:46] LABS: Influenza A QL RT-PCR Negative (Negative); Influenza B QL RT-PCR Negative (Negative); SARS-CoV-2 RNA PCR Negative (Negative)
--- NOTE | 2022-11-14 22:23 | PC.NURSE ---
Nursing staff was going to discharge patient, however patient stated that she wanted to speak to EDP and that she didn't understand why she was being discharged with 7/10 pain. EDNP Apple Minaya aware.
[2022-11-14 22:34] VITALS: BP 100/62; PULSE 83; RESP 15; TEMP 36.7; O2SAT 99
== END 2022-11-14 22:34 | disposition home or self-care (01) ==
PROVIDERS: Emergency Medicine; Emergency Provider Physician Assistant; PCP Family Medicine
DX: R10.9 Unspecified abdominal pain (principal); Z20.822 Contact with and (suspected) exposure to COVID-19; Z90.49 Acquired absence of other specified parts of digestive tract; Z62.819 Personal history of unspecified abuse in childhood; N94.89 Other specified conditions associated with female genital organs and menstrual cycle
CPT/HCPCS: 36415; 74177; 76830; 80053; 81025; 83690; 85025; 87636; 96361; 96374; 96375; 99284; J1885; J2270; J2405; J7030; Q9967

== ENCOUNTER 2023-01-13 14:27 | Emergency (ER) | payer OTHER, SELFPAY ==
[2023-01-13 14:28] VITALS: BP 110/61; PULSE 97; RESP 18; TEMP 36.6; O2SAT 100
[2023-01-13] MEDS: diphenhydrAMINE HCl INJ 50 MG/ML VIAL IV PUSH (14:56)
[2023-01-13] MEDS: FAMOTIDINE 20 MG/2 ML VIAL IV PUSH (15:00)
[2023-01-13] MEDS: methylPREDNISolone SOD SUCC 125 MG VIAL IV PUSH (15:00)
[2023-01-13] MEDS: SODIUM CHLORIDE 0.9% IV 1,000 ML 999 ML IV CONT (15:00)
[2023-01-13] MEDS: LORazepam (*CRX) 0.5 MG TABLET PO (15:35)
[2023-01-13 15:50] VITALS: BP 130/71; PULSE 70; RESP 18; O2SAT 100
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
[2023-01-13 18:37] VITALS: BP 105/73; PULSE 75; RESP 18; O2SAT 98
== END 2023-01-13 18:20 | disposition home or self-care (01) ==
PROVIDERS: Emergency Provider Nurse Practitioner; PCP Family Medicine
DX: T78.40XA Allergy, unspecified, initial encounter (principal); F41.9 Anxiety disorder, unspecified; Z90.49 Acquired absence of other specified parts of digestive tract
CPT/HCPCS: 96361; 96374; 96375; 99284; A9270; J1200; J2930; J7030

== ENCOUNTER → 2023-07-07 13:43 | Outpatient (CLI) | payer BC, SELFPAY ==
--- NOTE | ~2023-07-07 | US_ITS ---
US breast BI complete INDICATION: Bilateral breast pain TECHNIQUE: Dedicated complete bilateral breast ultrasound including all 4 quadrants in the subareolar locations COMPARISON: Ultrasound dated 03/14/2014 FINDINGS: In the right breast is a slightly irregular shaped hypoechoic mass at 2:00, 2 cm from the n ipple measuring 7 mm with echogenic center and no internal vascularity. No suspicious masses or cysts are identified in the left breast to suggest malignancy. IMPRESSION: 1: Probable benign 7 mm lymph node of the right breast at 2:00, 2 cm from the nipple. Six-month follo w-up right breast ultrasound recommended. BI-RADS CATEGORY 3-PROBABLY BENIGN FINDING RECOMMENDATION: 6 month follow up recommended. Reviewed, dictated and finalized at location A. TING OPERATOR IMPRESSION: 1: Probable benign 7 mm lymph node of the right breast at 2:00, 2 cm from the n ipple. Six-month follow-up right breast ultrasound recommended. BI-RADS CATEGORY 3-PROBABLY BENIGN FINDING RECOMMENDATION: 6 month follow up recommended.
== END ==
PROVIDERS: PCP Family Medicine; Visit Provider Student in an Organized Health Care Education/Training Program
DX: N64.4 Mastodynia (principal); R92.8 Other abnormal and inconclusive findings on diagnostic imaging of breast
CPT/HCPCS: 76641

== ENCOUNTER 2023-09-08 11:07 | Emergency (ER) | payer BC, SELFPAY ==
--- NOTE | ~2023-09-08 | XR_ITS ---
EXAMINATION: XR shoulder RT min 2V DATE: 09/08/2023 12:00 INDICATION: Right shoulder pain. Fall. TECHNIQUE: 4 views of right shoulder were obtained. COMPARISON: None. FINDINGS: Bone alignment is normal. No fracture. Joint spaces are normal. IMPRESSION: 1. Normal right shoulder. Reviewed, dictated and finalized at location A. IMPRESSION: 1. Normal right shoulder.
--- NOTE | ~2023-09-08 | XR_ITS ---
EXAMINATION: XR elbow RT min 3V DATE: 09/08/2023 12:00 INDICATION: Right elbow pain. Fall. TECHNIQUE: 5 views of right elbow were obtained. COMPARISON: None. FINDINGS: Bone alignment is normal. No fracture. Joint spaces are normal. No elbow joint effusion. IMPRESSION: 1. Normal right elbow. Reviewed, dictated and finalized at location A. IMPRESSION: 1. Normal right elbow.
--- NOTE | ~2023-09-08 | XR_ITS ---
EXAMINATION: XR scapula RT DATE: 09/08/2023 12:00 INDICATION: Right scapula injury and pain. Fall downstairs. TECHNIQUE: 2 views of the right scapula on 3 radiographs were obtained. COMPARISON: None. FINDINGS: Bone alignment is normal. No fracture. Joint spaces are normal. IMPRESSION: 1. Normal right scapula. Reviewed, dictated and finalized at location A. IMPRESSION: 1. Normal right scapula.
[2023-09-08 11:13] VITALS: BP 92/65; PULSE 92; RESP 16; TEMP 36.8; O2SAT 100
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
--- NOTE | 2023-09-08 12:35 | PC.NURSE ---
PIPE [employer] PAINT TRIMMER at bedside discussing x-ray results.
== END 2023-09-08 12:49 | disposition home or self-care (01) ==
PROVIDERS: Emergency Provider Nurse Practitioner; PCP Family Medicine
DX: S46.911A Strain of unspecified muscle, fascia and tendon at shoulder and upper arm level, right arm, initial encounter (principal); S50.01XA Contusion of right elbow, initial encounter; W10.9XXA Fall (on) (from) unspecified stairs and steps, initial encounter; L64.9 Androgenic alopecia, unspecified
CPT/HCPCS: 73010; 73030; 73080; 99214; G0463

== ENCOUNTER 2023-12-25 13:46 | Emergency (ER) | payer BC, SELFPAY ==
--- NOTE | ~2023-12-25 | XR_ITS ---
EXAMINATION: [id number] DATE: 12/25/2023 14:21 INDICATION: Right chest pain. TECHNIQUE: A frontal view of the chest and 2 views on 3 radiographs of the right ribs were obtained. COMPARISON: Chest 2 views 11/30/2020 FINDINGS: There is no pneumonia, pleural effusion, or pneumothorax. The heart size is normal. Surgica l clips in the right upper quadrant are likely from cholecystectomy. IMPRESSION: 1. No rib fracture. Reviewed, dictated and finalized at location A. IMPRESSION: 1. No rib fracture.
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
[2023-12-25 14:06] VITALS: BP 100/75; PULSE 91; RESP 16; TEMP 36.7; O2SAT 100
[2023-12-25] MEDS: IBUPROFEN 400 MG TABLET 800 MG PO (14:25)
== END 2023-12-25 14:50 | disposition home or self-care (01) ==
PROVIDERS: Emergency Provider Nurse Practitioner Family; PCP Family Medicine
DX: R07.89 Other chest pain (principal); M54.6 Pain in thoracic spine; L64.9 Androgenic alopecia, unspecified
CPT/HCPCS: 71101; 99213; A9270; G0463

== ENCOUNTER 2024-03-21 16:59 | Emergency (ER) | payer BC, SELFPAY ==
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
[2024-03-21 17:21] VITALS: BP 97/72; PULSE 85; RESP 16; TEMP 36.6; O2SAT 100
[2024-03-21 17:42] LABS: EDUAAPPEAR Clear; EDUABILI Negative (Negative); EDUABLOOD Trace (Negative); EDUACOLOR1 Yellow; EDUAGLUCOSE Negative (Negative); EDUAKETONE Negative (Negative); EDUALEUKO 1+ (Negative); EDUANITRATE Negative (Negative); EDUAPROTEIN Negative (Negative); EDUAUROBILI 0.2
== END 2024-03-21 18:08 | disposition home or self-care (01) ==
PROVIDERS: Emergency Provider Nurse Practitioner; PCP Family Medicine
DX: N39.0 Urinary tract infection, site not specified (principal); B37.31 Acute candidiasis of vulva and vagina; F41.9 Anxiety disorder, unspecified; L64.9 Androgenic alopecia, unspecified
CPT/HCPCS: 81003; 87086; 99213; G0463

== ENCOUNTER 2024-08-09 15:28 | Outpatient (CLI) | payer OTHER, SELFPAY ==
--- NOTE | ~2024-08-09 | US_ITS ---
EXAMINATION: US pelvic complete w TV INDICATION: Right pelvic pain. Rule out torsion. Comparison:No prior studies for comparison. TECHNIQUE: Multiple transabdominal and endovaginal sonographic images of the pelvis performed. FINDINGS: The uterus measures 7.6 x 4.5 x 5.4 cm. The endometrial complex measures 5 mm. The right ovary measures 1.4 x 2.4 x 1.5 cm and the left ovary measures 2.3 x 1.6 x 1.5 cm. There ar e small follicles in each ovary. Normal doppler signal in both ovaries. There is trace free fluid in the pelvis. There are no abnormal masses seen on either side. IMPRESSION: 1. Unremarkable pelvic ultrasound. Reviewed, dictated and finalized at location A.
== END 2024-08-09 15:29 | disposition home or self-care (01) ==
LOC: MICIMG 15:28
PROVIDERS: PCP Student in an Organized Health Care Education/Training Program; Visit Provider Nurse Practitioner Family
DX: R10.2 Pelvic and perineal pain (principal)
CPT/HCPCS: 76830; 76856

== ENCOUNTER 2024-08-29 17:22 | Emergency (ER) | payer OTHER, SELFPAY ==
[2024-08-29 17:33] VITALS: PULSE 92; RESP 16; TEMP 36.8; O2SAT 100
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
[2024-08-29 17:56] VITALS: BP 98/65; PULSE 92; RESP 16; TEMP 36.8; O2SAT 100
== END 2024-08-29 18:04 | disposition home or self-care (01) ==
PROVIDERS: Emergency Provider Nurse Practitioner
DX: L30.9 Dermatitis, unspecified (principal)
CPT/HCPCS: 99213; G0463

== ENCOUNTER 2024-09-23 19:09 | Emergency (ER) | payer OTHER, SELFPAY ==
[2024-09-23 19:18] VITALS: BP 92/63; PULSE 77; RESP 16; TEMP 36.9; O2SAT 100
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
[2024-09-23 20:07] VITALS: BP 136/97; PULSE 103
== END 2024-09-23 19:43 | disposition home or self-care (01) ==
PROVIDERS: Emergency Provider Nurse Practitioner Family
DX: L72.9 Follicular cyst of the skin and subcutaneous tissue, unspecified (principal); L64.9 Androgenic alopecia, unspecified; F41.9 Anxiety disorder, unspecified
CPT/HCPCS: 99213; G0463

== ENCOUNTER 2024-09-27 18:37 | Emergency (ER) | payer BC, SELFPAY ==
[2024-09-28 19:05] LABS: Trichomonas Vag PCR NOT DETECTED (NOT DETECTE)
[2024-09-28 19:31] LABS: Chlamydia trachomatis NOT DETECTED (NOT DETECTE); Neisseria gonorrhoeae PCR NOT DETECTED (NOT DETECTE)
[2024-09-30 14:29] LABS: Bacterial Vaginosis NEGATIVE (NEGATIVE)
== END 2024-09-27 19:37 | disposition home or self-care (01) ==
PROVIDERS: Emergency Provider Nurse Practitioner Family; PCP Family Medicine
DX: B37.31 Acute candidiasis of vulva and vagina (principal); Z11.3 Encounter for screening for infections with a predominantly sexual mode of transmission
CPT/HCPCS: 81513; 87070; 87491; 87591; 87661; 99213; G0463

== ENCOUNTER 2024-11-15 06:46 | Emergency (ER) | payer BC, SELFPAY ==
--- OUTSIDE RECORDS SUMMARY | 2024-11-15 06:48 | XMS_ITS | Clinical Summary ---
Author Organization [facility] Address [address] [place] [phone] Phone Care Team Providers Care Floor Tiling Professional Name Role Phone Maykel Brown MD Primary Care Provider [phone]- [phone] Medications NITROFURANTOIN MONOHYD/M-CRYST ORAL Take by mouth. Active OMEPRAZOLE ORAL Take by mouth. Active ondansetron (ZOFRAN) 4 mg Tablet Take 4 mg by mouth every 8 hours as needed for Nausea/Emes is. Active dextroamphetamin e-amphetamine (ADDERALL) 20 mg tablet Take 20 mg by mouth daily. Active Encounters Date Type Department Care Team Description 11/05/2024 External Device Data [facility] ABSTRACTION Provider, Abstract 10/29/2024 External Device Data [facility] Provider, Abstract 10/22/2024 External Device Data [facility] Provider, Abstract 10/22/2024 External Device Data [facility] Provider, Abstract 10/08/2024 External Device Data [facility] Provider, Abstract 09/17/2024 External Device Data [facility]CTION Provider, Abstract 09/03/2024 External Device Data [facility] Provider, Abstract 09/03/2024 External Device Data [facility] ABSTRACTION Provider, Abstract from Last 3 Months Social History Tobacco Use Types Packs/Day Years Used Date Smoking Tobacco: Never Smokeless Tobacco: Never Tobacco Cessation:Counseling Given: Not Answered Alcohol Use Standard Drinks/Week Comments Not Currently 0 (1 standard drink = 0.6 oz pur e alcohol) socially Feeling Safe Answer Date Recorded Are you in a relationship wi th someone who hurts you emotionally and/or physically? No 03/23/2024 Comments Unknown Sex and Gender Information Value Date Recorded Sex Assigned at Not on file Legal Sex Female 7:02 AM DIGITAL MARKETING OFFICER Gender Identity Not on file Sexual Orientation Not on file Last Filed Vital Signs Vital Sign Reading Time Taken Comments Blood Pressure 106/62 03/23/2024 12:50 PM DIGITAL MARKETING OFFICER Pulse 79 03/23/2024 10:15 AM DIGITAL MARKETING OFFICER Temperature 36.7 C (98.1 F) 03/23/2024 7:05 AM DIGITAL MARKETING OFFICER Respiratory Rate 16 03/23/2024 12:50 PM DIGITAL MARKETING OFFICER Oxygen Saturation 98% 03/23/2024 12:50 PM DIGITAL MARKETING OFFICER Inhaled Oxygen Concentration - - Weight 49.9 kg (110 lb) 03/23/2024 7:05 AM DIGITAL MARKETING OFFICER Height 157.5 cm (5' 2) 03/23/2024 7:05 AM DIGITAL MARKETING OFFICER Body Mass Index 20.12 03/23/2024 7:05 AM DIGITAL MARKETING OFFICER Plan of Treatment Health Maintenance Due Date Last Done Comments HEPATITIS B VACCINES (1 of 3 - 19+ 3-dose series) 08/03/2014 CERVICAL CANCER SCREENING 08/03/2016 HPV/Cotest (21-29) 08/03/2016 PAP SMEAR 08/03/2016 INFLUENZA VACCINE (#1) 2024 DTAP/TDAP/TD VACCINES (3 - Td or Tdap) 11/03/2032 11/03/2022, 12/20/2020 HPV VACCINES Aged Out No longer eligi ble based on patient's age to complete this topic Insurance [facility] Care Teams Floor Tiling Professional Relationship Specialty Start Date End Date Maykel Brown MD [address] [place] [phone] PCP - General Family Practice 03/23/24
--- OUTSIDE RECORDS SUMMARY | 2024-11-15 06:48 | XMS_ITS | Clinical Summary ---
Author Organization [facility] Address [address] [place] [address] Care Team Providers Care Antique Furniture Restorer Name Role Phone Maykel Brown MD Primary Care Provider [phone]- [phone] Allergies No known active allergies Medications ALPRAZolam (XANAX) 0.25 MG tablet Take 1 tablet (0.25 mg total) by mouth as needed. 10/31/19 24 Active omeprazole (PRILOSEC) 20 MG capsuleIndications :Epigastric pain,Heartburn Take 1 capsule (20 mg total) by mouth daily. 90 capsule 2 11/01/19 24 Active amphetamine-dextro amphetamine XR (ADDERALL XR) 20 MG 24 hr capsule Take 1 capsule by mouth daily. 05/26/19 25 Active norelgestromin-eth inyl estradiol (ZAFEMY) 150-35 MCG/24HR packet Place 1 patch onto the skin once a week. Active venlafaxine (EFFEXOR) 37.5 MG tablet Take 1 tablet (37.5 mg total) by mouth daily. Active ondansetron (ZOFRAN-ODT) 4 MG disintegrating tablet Take 1 tablet (4 mg total) by mouth every 8 (eight) hours as needed. 20 tablet 06/17/19 25 Active HYDROcodone-acetam inophen (NORCO) 5-325 MG tabletIndications: Acute Pain < 7 Day Supply Take 1 tablet by mouth every 6 (six) hours as needed. Indications: Acute Pain < 7 Day Supply 21 tablet 06/17/19 25 Active naloxone (NARCAN) 4 MG/0.1ML nasal spray 1 spray by Nasal route as needed for Opioid reversal. may repeat every 2 to 3 minutes in alternating nostrils until medical assistance becomes available 1 each 06/17/19 25 026 Active Active Problems Problem Noted Date Diagnosed Date Constipation, unspecified constipation type 04/15 Nausea 05/10/2024 GERD (gastroesophageal reflux disease) Diarrhea, unspecified type 10/18/2023 Other constipation 10/18/2023 LLQ abdominal pain 10/18/2023 Epigastric pain 10/18/2023 Heartburn 10/18/2023 Pituitary tumor 10/18/2023 Iron deficiency 10/18/2023 Anxiety 10/18/2023 Moderate episode of recurrent major depressive d isorder 10/18/2023 Lump in upper inner quadrant of right breast 09/2023 Ruptured eardrum, right 10/18/2023 Resolved Problems Problem Noted Date Diagnosed Date Resolved Date Screening examination for STI 10/18/2023 10/23/2023 Encounters Date Type Department Care Team Description 08/28/2024 Telephone [facility] [address], [address] [place] [address] Justin Young MD Called To Cancel Office Appt. from Last 3 Months Immunizations Immunization Administration Dates Next Due Influenza Adult (Generic) 02/04/2020 Tdap (Generic) 11/03/2022,12/20/2020 Family History Medical History Relation Comments No Known Problems Mother Relation Status Comments Father Unknown Mother Alive Social History Tobacco Use Types Packs/Day Years Used Date Smoking Tobacco: Never Smokeless Tobacco: Never Tobacco Cessation:Counseling Given: No Alcohol Use Standard Drinks/Week Comments Yes 0 (1 standard drink = 0.6 oz pur e alcohol) socially PHQ-2 Answer Date Recorded Patient Health Questionnaire-2 Score 0 05/10/2024 Comments No Sex and Gender Information Value Date Recorded Sex Assigned at Female 06/17/2024 2:30 PM BUSINESS APPLICATIONS ANALYST Legal Sex Female 2:39 PM CDT Gender Identity Not on file Sexual Orientation Not on file Last Filed Vital Signs Vital Sign Reading Time Taken Comments Blood Pressure 109/64 06/24/2024 1:06 PM BUSINESS APPLICATIONS ANALYST Pulse 85 06/24/2024 1:06 PM BUSINESS APPLICATIONS ANALYST Temperature 36.2 C (97.1 F) 06/24/2024 1:06 PM BUSINESS APPLICATIONS ANALYST Respiratory Rate 16 06/24/2024 1:06 PM BUSINESS APPLICATIONS ANALYST Oxygen Saturation 100% 06/24/2024 1:06 PM BUSINESS APPLICATIONS ANALYST Inhaled Oxygen Concentration - - Weight 49.9 kg (110 lb) 06/24/2024 1:06 PM BUSINESS APPLICATIONS ANALYST Height 157.5 cm (5' 2) 06/24/2024 1:06 PM BUSINESS APPLICATIONS ANALYST Body Mass Index 20.12 06/24/2024 1:06 PM BUSINESS APPLICATIONS ANALYST Plan of Treatment Health Maintenance Due Date Last Done Comments Annual Physical 08/03/1998 Hepatitis B Vaccines (1 of 3 - 19+ 3-dose series) 08/03/2014 COVID-19 Vaccine ( - 2023-2 5 season) 2024 02/02/2021, 01/12/2021 PHQ-2 (Physician [place]) 05/15/2024 05/10/2024 Cervical Cancer Screening Pa p Smear (Age 21 to 29) Every 3 Years 07/29/2025 07/29/2022 Cervical Cancer Screening 07/29/2025 DTaP, Tdap and Td Vaccines ( 3 - Td or Tdap) 11/03/2032 11/03/2022, 12/20/2020 Hepatitis C Completed 10/18/2023 HPV Vaccines Aged Out No longer eligi ble based on patient's age to complete this topic Meningococcal B Vaccine Aged Out No l onger eligible based on patient's age to complete this topic Meningococcal Vaccine Aged Out No adriana gayle eligible based on patient's age to complete this topic Pneumococcal Vaccine: Pediatrics (0 to 5 Years) and At-Risk Patients (6 to 49 Years) Aged Out No longer eligible b ased on patient's age to complete this topic RSV Immunizations Under 20 Months Aged Out No longer eligible b ased on patient's age to complete this topic Procedures Procedure Name Priority Date/Time Associated Diagnosis Comments HEPATITIS PANEL,ACUTE Routine 10/18/2023 4:04 PM CDT LLQ abdominal pain Pituitary tumor Screening examination for STI Encounter for medical examination to establish care OUTSIDE CYTOPATH CERV/VAG INTERPRET (PAP) 07/29/2022 from Last 3 Months or Most Recently Relevant to Health Maintenance Results * HEPATITIS PANEL,ACUTE (10/18/2023 4:04 PM CDT) HEPATITIS B SURFACE AG NON-REACT RICKIE NON-REACT RICKIE 10/18/2023 10:59 PM CDT [facility] Comment:HBsAg NOT DETECTED. HEP B CORE IGM NON-REACT RICKIE NON-REACT RICKIE 10/18/2023 10:59 PM CDT [facility] Comment: IgM ANTI HBc NOT DETECTED. DOES NOT EXCLUDE THE POSSIBILITY OF EXPOSURE TO OR INFECTION WITH HBV. NO RETEST REQUIRED. HIGH DOSES OF BIOTIN MAY INTERFERE WITH THIS TEST RESULT. CORRELATION TO CLINICAL HISTORY AND PRESENTATION RECOMMENDED. HAV IGM NON-REACT RICKIE NON-REACT RICKIE 10/18/2023 10:59 PM CDT [facility] Comment: IgM ANTI HAV NOT DETECTED. DOES NOT EXCLUDE THE POSSIBILITY OF EXPOSURE TO OR INFECTION WITH HAV. LEVELS OF IgM ANTI HAV MAY BE BELOW THE CUTOFF IN EARLY INFECTION. HEPATITIS C AB NON-REACT RICKIE NON-REACT RICKIE 10/18/2023 10:59 PM CDT [facility] Comment: ANTIBODIES TO HCV NOT DETECTED. DOES NOT EXCLUDE THE POSSIBILITY OF EXPOSURE TO HCV. 10/18/2023 4:04 PM CDT Anastasiia Ramsay NP LABORATORY Final Resul t [facility] [address] [place] [address], [id number] * PAP SMEAR WITH HPV (07/29/2022) 07/29/2022 [facility] Scanned SCANNING Final Resu lt from Last 3 Months or Most Recently Relevant to Health Maintenance Insurance [facility] Care Teams Antique Furniture Restorer Relationship Specialty Start Date End Date Maykel Brown MD [id number] [facility] [address] [address] PCP - General FAMILY PRACTICE 06/17/24
--- OUTSIDE RECORDS SUMMARY | 2024-11-15 06:48 | XMS_ITS | Referral Summary ---
Author Organization [facility] [address] Address [address] [place] [phone] Care Team Providers Care Whipper Name Role Phone Unknown, Notinfile Primary Care Provider Unavail able Erasto Cortés MD Unavailable [phone] Allergies No known active allergies Medications sertraline (ZOLOFT) 100 mg tablet TK 1 T PO QAM FOR 30 DAYS 5 9 Active busPIRone (BUSPAR) 10 mg tablet TK 1 T PO Q 12 H PRN [address] (NexIUM) 40 mg capsule Take 1 capsule (40 mg total) by mouth daily 4 Active fluticasone propionate (FLONASE) 50 mcg/actuation nasal spray Administer 2 sprays into affected nostril(s) daily 1 Active Zafemy 150-35 mcg/24 hr 4 Active ondansetron (ZOFRAN) 4 mg tablet TAKE 1 TABLET BY MOUTH EVERY 6 HOURS NEEDED FOR NAUSEA OR VOMITING 4 Active sucralfate (CARAFATE) 1 gram tablet TAKE 1 TABLET BY MOUTH EVERY 4 HOURS NEEDED FOR ABDOMINAL PAIN 4 Active amoxicillin 500 mg tablet/capsule Take by mouth A ctive methylPREDNISol one (MEDROL DOSEPACK) 4 mg DosepackIndicat ions:Acute cough Take 6 tabs on day 1, reduce dose by 1 daily until prescription is complete. 1 packet 4 Active ALPRAZolam (XANAX) 0.25 mg tablet Take by mouth 2 (two) times a day as needed 4 Active cyclobenzaprine (FLEXERIL) 10 mg tablet Take 1 tablet (10 mg total) by mouth 3 (three) times a day as needed for muscle spasms [address] (VOLTAREN) 50 mg EC tablet Take 1 tablet (50 mg total) by mouth 3 (three) times a day as needed for pain 4 Active fluconazole (DIFLUCAN) 150 mg tablet Take by mouth once 4 Active medroxyPROGESTE Yared (PROVERA) 10 mg tablet 4 Active venlafaxine XR (EFFEXOR-XR) 37.5 mg 24 hr capsule Take 1 capsule (37.5 mg total) by mouth daily 4 Active Active Problems Problem Noted Date Diagnosed Date Anxiety 10/18/2023 Diarrhea 10/18/2023 Epigastric pain 10/18/2023 Heartburn 10/18/2023 Iron deficiency 10/18/2023 LLQ abdominal pain 10/18/2023 Lump in upper inner quadrant of right breast 09/2023 Moderate episode of recurrent major depressive d isorder 10/18/2023 Other constipation 10/18/2023 Pituitary tumor 10/18/2023 Ruptured eardrum, right 10/18/2023 Vitamin D deficiency 10/02/2018 Mixed anxiety and depressive disorder 07/10/2018 Inadequate dietary energy intake 03/29/2017 Malaise and fatigue 03/29/2017 Hyperprolactinemia 12/08/2016 Assessment & Plan (10/05/2018 1:45 PM CDT): I had a lengthy discussion with Bea her mother about the goal of treatment of hyperprolactinemia will be to normalize prolactin levels in order to stop galactorrhea It could also help with improving her irregular menstrual periods, although more frequently hyperprolactinemia actually causes amenorrhea If she is having anovulatory cycles related to hyperprolactinemia, correcting the prolactin could lead to normal ovulation. This wouldl put the patient at risk of , so she will need some sort of control Also although low probability thing we need to repeat an MRI of the pituitary to rule out a prolactinoma, micro or macro. Assessment & Plan (12/08/2016 10:16 AM CDT): Will recheck prolactin levels Restart Cabergoline, 1/2 tab twice a week Recheck prolactin in 6 wks Follow up in 3 m Neuropathy 12/05/2016 Multiple injuries 07/21/2014 Phalanx fracture, foot 09/14/2010 Resolved Problems Problem Noted Date Diagnosed Date Resolved Date Paresthesia 12/08/2016 10/05/2018 Assessment & Plan (12/08/2016 10:17 AM CDT): Not explainable at all by elevated prolactin Neurologist consultation advised. Immunizations Immunization Administration Dates Next Due Influenza, Quadrivalent, Razia l Culture-based MDCK, Preservative Free, Antibiotic Free, Intramuscular 02/04/2020 Tdap 11/03/2022,12/20/2020 Social History Tobacco Use Types Packs/Day Years Used Date Smoking Tobacco: Never Alcohol Use Standard Drinks/Week Comments No 0 (1 standard drink = 0.6 oz pur e alcohol) PHQ-2 Answer Date Recorded PHQ-2 Score 0 01/03/2019 Personal Safety Answer Date Recorded Getting School Help Needed Not on file 07/26 Comments Unknown Sex and Gender Information Value Date Recorded Sex Assigned at Not on file Legal Sex Female 9:02 PM STOCK AND STATION AGENT Gender Identity Not on file Sexual Orientation Not on file Last Filed Vital Signs Vital Sign Reading Time Taken Comments Blood Pressure 84/66 07/27/2023 7:11 PM CDT Pulse 86 07/27/2023 7:11 PM CDT Temperature 37 C (98.6 F) 07/27/2023 7:11 PM CDT Respiratory Rate 20 07/27/2023 7:11 PM CDT Oxygen Saturation 98% 07/27/2023 7:11 PM CDT Inhaled Oxygen Concentration - - Weight 57.2 kg (126 lb) 07/27/2023 7:11 PM CDT Height 157.5 cm (5' 2) 07/27/2023 7:11 PM CDT Body Mass Index 23.05 07/27/2023 7:11 PM CDT Plan of Treatment Not on file Insurance [facility] [place] Care Teams Whipper Relationship Specialty Start Date End Date Unknown, Notinfile PCP - General 07/27/23 Erasto Cortés MD [address] [place] [address] Strategic Manager 07/27/23
--- OUTSIDE RECORDS SUMMARY | 2024-11-15 06:48 | XMS_ITS | Clinical Summary ---
Author Organization [facility] Address [address] [place] [address] Care Team Providers Care Algology Teacher Name Role Phone Maykel Brown MD Primary Care Provider [phone]- [phone] Source Comments [facility],non-owned Affiliates and Associated Physician Practices is amultiple site organization consisting of ambulatory clinics and hospital sitesin [place], [place], [place] and [place]. This disclosure is being madepursuant to the Care Everywhere program and may not contain all information available regarding this patient. Last updated 18.[facility] Allergies No known active allergies Medications * Be aware that medications may not be up to date on this document. Alwaysverify current medications with the patient. fluticasone propionate (FLONASE) 50 MCG/ACT nasal sprayIndication s:Sore throat [place] 2 (two) sprays into each nostril once daily 1 Each 05/14/2021 Active Active Problems No known active problems Social History Tobacco Use Types Packs/Day Years Used Date Smoking Tobacco: Never Smokeless Tobacco: Never Comments No Sex and Gender Information Value Date Recorded Sex Assigned at Not on file Legal Sex Female 11:08 AM CDT Gender Identity Not on file Sexual Orientation Not on file Last Filed Vital Signs Vital Sign Reading Time Taken Comments Blood Pressure 98/70 05/14/2021 10:43 AM BURNING MACHINE OPERATOR Pulse 83 05/14/2021 10:43 AM BURNING MACHINE OPERATOR Temperature 36.7 C (98 F) 05/14/2021 10:43 AM BURNING MACHINE OPERATOR Respiratory Rate 16 05/14/2021 10:43 AM BURNING MACHINE OPERATOR Oxygen Saturation 98% 05/14/2021 10:43 AM BURNING MACHINE OPERATOR Inhaled Oxygen Concentration - - Weight 63.5 kg (140 lb) 05/14/2021 10:43 AM BURNING MACHINE OPERATOR Height 157.5 cm (5' 2) 05/14/2021 10:43 AM BURNING MACHINE OPERATOR Body Mass Index 25.61 05/14/2021 10:43 AM BURNING MACHINE OPERATOR Plan of Treatment Health Maintenance Due Date Last Done Comments HIV SCREENING 08/03/2010 HEPATITIS C SCREENING 07/30/2013 DTAP/TDAP/TD VACCINES (1 - Tdap) 08/03/2014 HEPATITIS B VACCINE (1 of 3 - 19+ 3-dose series) 08/03/2014 COVID-19 VACCINE (1 - 2023-2 5 season) 2024 DEPRESSION SCREENING 05/15/2024 INFLUENZA VACCINE (Season Ended) 2025 ZOSTER VACCINE (1 of 2) 08/03/2045 HIB VACCINE Aged Out No longer eligi ble based on patient's age to complete this topic HPV VACCINE Aged Out No longer eligi ble based on patient's age to complete this topic MENINGOCOCCAL (Group B) VACC INE SHARED DECISION-MAKING Aged Out No longer eligibl e based on patient's age to complete this topic MENINGOCOCCAL GROUPS A/C/Y/W VACCINE Aged Out No longer eligible b ased on patient's age to complete this topic PNEUMOCOCCAL VACCINE Aged Out No long er eligible based on patient's age to complete this topic Insurance [employer] Care Teams Algology Teacher Relationship Specialty Start Date End Date Maykel Brown MD [facility] [place] [address] PCP - General Family Medicine 05/14/21
--- OUTSIDE RECORDS SUMMARY | 2024-11-15 06:48 | XMS_ITS | Clinical Summary ---
Author Organization [facility] [address] Address [address] [place] [address] Care Team Providers Care Covered Buckle Assembler Name Role Phone Unknown, Notinfile Primary Care Provider Unavail able Erasto Cortés MD Unavailable [phone] Allergies No known active allergies Medications [...] Free, Antibiotic Free, Intramuscular 02/04/2020 Tdap 11/03/2022,12/20/2020 Medical History Medical History Date Comments Hx Other Medical not claustropho bic; Comments: HERNANDEZ 02/26/2014 - Hx Other Medical Headache, migra ine Hx Other Medical ear tubes Social History Tobacco Use Types Packs/Day Years [...] on file Legal Sex Female 9:02 PM MACHINE GUN MECHANIC Gender Identity Not on file Sexual Orientation Not on file Obstetrics History Last Filed Vital Signs Vital Sign Reading [...] 07/27/2023 7:11 PM CDT Plan of Treatment Health Maintenance Due Date Last Done Comments Cervical Cancer Screening 1995 Hepatitis C Screening 1995 Varicella Vaccines (1 of 2 - 13+ 2-dose series) 08/03/2008 Hepatitis B Screening 08/03/2013 Regular Well Visit/Exam 18-64 08/03/2013 Depression Screening 10/06/2019 10/05/2018, 12/08/2016 Covid-19 Vaccine (3 - 2023-2 5 season) 2024 02/02/2021, 01/12/2021 Influenza Vaccine (#1) 2025 02/04/2020 DTaP/Tdap/Td Vaccine (3 - Td or Tdap) 11/03/2032 11/03/2022, 12/20/2020 HPV Vaccines Aged Out No longer eligi ble based on patient's age to complete this topic Pneumococcal vaccine <65 Aged Out No longer eligible based on patient's age to complete this topic Insurance [facility] [place] Care Teams Covered Buckle Assembler Relationship Specialty Start Date End Date Unknown, Notinfile PCP - General 07/27/23 Erasto Cortés MD [address] [place] [address] Forestry Instructor 07/27/23
[2024-11-15 06:55] VITALS: BP 124/84; PULSE 79; RESP 14; TEMP 36.8; O2SAT 100
--- OUTSIDE RECORDS SUMMARY | 2024-11-15 07:22 | XMS_ITS | Clinical Summary ---
Author Organization [facility] Address [address] [place] [address] Care Team Providers Care Rn Hematology Name Role Phone Maykel Brown MD Primary Care Provider [phone] Source Comments [facility],non-owned Affiliates and Associated Physician Practices is amultiple site organization consisting of ambulatory clinics and hospital sitesin [place], [place], [place] and [place]. This disclosure is being madepursuant to the Care Everywhere program and may not contain all information available regarding this patient. Last updated 18.[facility] Allergies No known active allergies Medications * Be aware that medications may not be up to date on this document. Alwaysverify current medications with the patient. fluticasone propionate (FLONASE) 50 MCG/ACT nasal sprayIndication s:Sore throat [place] 2 (two) sprays into each nostril once [...] Comments Blood Pressure 98/70 05/14/2021 10:43 AM BATCHMAKER Pulse 83 05/14/2021 10:43 AM BATCHMAKER Temperature 36.7 C (98 F) 05/14/2021 10:43 AM BATCHMAKER Respiratory Rate 16 05/14/2021 10:43 AM BATCHMAKER Oxygen Saturation 98% 05/14/2021 10:43 AM BATCHMAKER Inhaled Oxygen Concentration - - Weight 63.5 kg (140 lb) 05/14/2021 10:43 AM BATCHMAKER Height 157.5 cm (5' 2) 05/14/2021 10:43 AM BATCHMAKER Body Mass Index 25.61 05/14/2021 10:43 AM BATCHMAKER Plan of Treatment Health Maintenance Due Date [...] complete this topic Insurance [employer] Care Teams Rn Hematology Relationship Specialty Start Date End Date Maykel Brown MD [facility] [place] [address] PCP - General Family Medicine 05/14/21
--- OUTSIDE RECORDS SUMMARY | 2024-11-15 07:22 | XMS_ITS | Clinical Summary ---
Author Organization [facility] Address [address] [place] [address] Care Team Providers Care Qual Field Manager Name Role Phone Maykel Brown MD Primary Care Provider [phone]- [phone] Allergies No known active allergies Medications ALPRAZolam [...] Type Department Care Team Description 08/28/2024 Telephone [facility] - [address], [address] [place] [address] Justin Young MD Called To [...] Sex Assigned at Female 06/17/2024 2:30 PM MECHANICAL METER TESTER Legal Sex Female 2:39 PM CDT Gender Identity Not on file Sexual Orientation Not on file Last Filed Vital Signs Vital Sign Reading Time Taken Comments Blood Pressure 109/64 06/24/2024 1:06 PM MECHANICAL METER TESTER Pulse 85 06/24/2024 1:06 PM MECHANICAL METER TESTER Temperature 36.2 C (97.1 F) 06/24/2024 1:06 PM MECHANICAL METER TESTER Respiratory Rate 16 06/24/2024 1:06 PM MECHANICAL METER TESTER Oxygen Saturation 100% 06/24/2024 1:06 PM MECHANICAL METER TESTER Inhaled Oxygen Concentration - - Weight 49.9 kg (110 lb) 06/24/2024 1:06 PM MECHANICAL METER TESTER Height 157.5 cm (5' 2) 06/24/2024 1:06 PM MECHANICAL METER TESTER Body Mass Index 20.12 06/24/2024 1:06 PM MECHANICAL METER TESTER Plan of Treatment Health Maintenance Due Date Last Done Comments Annual Physical 08/03/1998 Hepatitis B Vaccines (1 of 3 - 19+ 3-dose series) 08/03/2014 COVID-19 Vaccine ( - 2023-2 5 season) 2024 02/02/2021, 01/12/2021 PHQ-2 (Physician [place]) 05/15/2024 05/10/2024 Cervical Cancer Screening Pa p [...] RICKIE NON-REACT RICKIE 10/18/2023 10:59 PM CDT [facility] Comment:HBsAg NOT DETECTED. HEP B CORE IGM NON-REACT RICKIE NON-REACT RICKIE 10/18/2023 10:59 PM CDT [facility] Comment: IgM ANTI HBc NOT DETECTED. DOES NOT EXCLUDE THE POSSIBILITY OF EXPOSURE TO OR INFECTION WITH HBV. NO RETEST REQUIRED. HIGH DOSES OF BIOTIN MAY INTERFERE WITH THIS TEST RESULT. CORRELATION TO CLINICAL HISTORY AND PRESENTATION RECOMMENDED. HAV IGM NON-REACT RICKIE NON-REACT RICKIE 10/18/2023 10:59 PM CDT [facility] Comment: IgM ANTI HAV NOT DETECTED. DOES NOT EXCLUDE THE POSSIBILITY OF EXPOSURE TO OR INFECTION WITH HAV. LEVELS OF IgM ANTI HAV MAY BE BELOW THE CUTOFF IN EARLY INFECTION. HEPATITIS C AB NON-REACT RICKIE NON-REACT RICKIE 10/18/2023 10:59 PM CDT [facility] Comment: ANTIBODIES TO HCV NOT DETECTED. DOES NOT EXCLUDE THE POSSIBILITY OF EXPOSURE TO HCV. 10/18/2023 4:04 PM CDT Anastasiia Ramsay NP LABORATORY Final Resul t [facility] [address] [place] [address], [id number] * PAP SMEAR WITH HPV (07/29/2022) 07/29/2022 [facility] Scanned SCANNING Final Resu lt from Last 3 Months or Most Recently Relevant to Health Maintenance Insurance [facility] Care Teams Qual Field Manager Relationship Specialty Start Date End Date Maykel Brown MD [id number] [facility] [address] [address] PCP - General FAMILY PRACTICE 06/17/24
--- OUTSIDE RECORDS SUMMARY | 2024-11-15 07:22 | XMS_ITS | Clinical Summary ---
Author Organization [facility] Address [id number] [place] [phone] Phone Care Team Providers Care Monitor Technician Name Role Phone Maykel Brown MD Primary Care Provider [phone]- [phone] Medications NITROFURANTOIN MONOHYD/M-CRYST ORAL Take by mouth. [...] on file Legal Sex Female 7:02 AM EXECUTIVE LEGAL SECRETARY Gender Identity Not on file Sexual Orientation Not on file Last Filed Vital Signs Vital Sign Reading Time Taken Comments Blood Pressure 106/62 03/23/2024 12:50 PM EXECUTIVE LEGAL SECRETARY Pulse 79 03/23/2024 10:15 AM EXECUTIVE LEGAL SECRETARY Temperature 36.7 C (98.1 F) 03/23/2024 7:05 AM EXECUTIVE LEGAL SECRETARY Respiratory Rate 16 03/23/2024 12:50 PM EXECUTIVE LEGAL SECRETARY Oxygen Saturation 98% 03/23/2024 12:50 PM EXECUTIVE LEGAL SECRETARY Inhaled Oxygen Concentration - - Weight 49.9 kg (110 lb) 03/23/2024 7:05 AM EXECUTIVE LEGAL SECRETARY Height 157.5 cm (5' 2) 03/23/2024 7:05 AM EXECUTIVE LEGAL SECRETARY Body Mass Index 20.12 03/23/2024 7:05 AM EXECUTIVE LEGAL SECRETARY Plan of Treatment Health Maintenance Due Date Last Done Comments HEPATITIS B VACCINES (1 of 3 - 19+ 3-dose series) 08/03/2014 CERVICAL CANCER SCREENING 08/03/2016 HPV/Cotest (21-29) 08/03/2016 PAP SMEAR 08/03/2016 INFLUENZA VACCINE (#1) 2024 DTAP/TDAP/TD VACCINES (3 - Td or Tdap) 11/03/2032 11/03/2022, 12/20/2020 HPV VACCINES Aged Out No longer eligi ble based on patient's age to complete this topic Insurance [facility] Care Teams Monitor Technician Relationship Specialty Start Date End Date Maykel Brown MD [address] [place] [phone] PCP - General Family Practice 03/23/24
[2024-11-15] MEDS: dexAMETHasone SOD PHOS INJ 10 MG/ML 1 ML VIAL IV PUSH (07:45)
[2024-11-15] MEDS: KETOROLAC 30 MG/ML VIAL (*BKC) IV PUSH (07:45)
[2024-11-15] MEDS: LIDOCAINE 5% PATCH 1 PATCH TRANSDERM (07:46)
[2024-11-15] MEDS: ORPHENADRINE CITRATE 100 MG TABLET.ER PO (07:46)
[2024-11-15] MEDS: SODIUM CHLORIDE 0.9% IV 1,000 ML 999 ML IV CONT (07:47)
[2024-11-15] MEDS: MAGNESIUM SULF 1 GM/D5W 100 ML 1 GM/100 ML BAG IVPB (07:54)
[2024-11-15 07:58] LABS: Alanine Aminotransferase 13 U/L (6-35); Albumin Level 3.9 g/dL (3.5-5.1); Alkaline Phosphatase 68 U/L (38-126); Anion Gap 9 mmol/L (4-12); Aspartate Amino Transferase 21 U/L (14-36); Bilirubin,Total 0.4 mg/dL (0.2-1.3); Blood Urea Nitrogen 10 mg/dL (7-17); Calcium 8.9 mg/dL (8.4-10.2); Carbon Dioxide 25 mmol/L (22-30); Chloride 106 mmol/L (98-107); Estimated CRCL calculation 65 ml/min; Estimated Glomerular Filt Rate > 60; Glucose 87 mg/dL (65-110); Potassium 3.5 mmol/L (3.4-5.0); Sodium 140 mmol/L (137-145); Total Protein 7.2 g/dL (6.3-8.2)
[2024-11-15 08:00] VITALS: BP 118/68; PULSE 72; RESP 16; TEMP 36.6; O2SAT 100
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
--- NOTE | 2024-11-15 08:16 | PC.NURSE ---
refused some medication because she reported she has plans for he day and did not want to be tired
[2024-11-15 08:17] LABS: Hematocrit 39.2 % (37.0-47.0); Hemoglobin 12.6 g/dL (12.0-15.0); Immature Granulocyte Percent A 0.6 % (0-0.5); Lymphocytes Absolute Auto 2.33 K/mm3 (0.9-3.2); Mean Corpuscular HGB Conc 32.1 g/dl (32-36); Mean Corpuscular Hemoglobin 29.3 pg (26-34); Mean Corpuscular Volume 91.2 fl (80-100); Nucleated Red Blood Cells Absolute Auto 0.000 K/mm3 (0.0-0.012); Nucleated Red Blood Cells Perc 0.0 % (0.0-0.2); Platelet Count Result 242 k/mm3 (150-375); Red Blood Count 4.30 M/mm3 (4.2-5.4); White Blood Count 5.5 K/mm3 (4.5-10.0)
[2024-11-15 08:58] VITALS: BP 112/68; PULSE 70; RESP 16; TEMP 36.6; O2SAT 100
== END 2024-11-15 08:58 | disposition home or self-care (01) ==
PROVIDERS: Emergency Provider Emergency Medicine; PCP Family Medicine
DX: G43.909 Migraine, unspecified, not intractable, without status migrainosus (principal); S16.1XXA Strain of muscle, fascia and tendon at neck level, initial encounter; X58.XXXA Exposure to other specified factors, initial encounter
CPT/HCPCS: 36415; 80053; 85025; 96365; 96375; 99284; A9270; J1100; J1885; J3475; J7030

== ENCOUNTER 2024-12-20 17:49 | Emergency (ER) | payer BC, SELFPAY ==
--- NOTE | ~2024-12-20 | XR_ITS ---
Exam: Abdomen 1V HISTORY: generalized abdomen pain r/o constipation COMPARISON: Reference is made to a CT examination of the abdomen and pelvis dated 11/14/2022 TECHNIQUE: Supine images of the abdomen FINDINGS: Extensive fecal stasis within the colon, extending into the deep pelvis. A single loop of nondilated aerated small bowel to the left of midline with multiple folds at the edwina gin. There is no free air or deep sulci. No pathologic calcifications are seen. IMPRESSION: Extensive fecal stasis within the colon, extending to the deep pelvis. A single loop of nondilated aerated small bowel to the left of midline, is detailed above. Reviewed, dictated and finalized at location A. IMPRESSION: Extensive fecal stasis within the colon, extending to the deep pelvis. A single loop of nondilated aerated small bowel to the left of midline, is deta iled above.
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
[2024-12-20 17:55] VITALS: BP 103/72; PULSE 79; RESP 16; TEMP 36.6; O2SAT 99
[2024-12-20] MEDS: MAG HYDROX/AL HYDROX/SIMETH 30 ML UDC PO (18:49)
[2024-12-20] MEDS: LIDOCAINE 2% VISC SOLN 15 ML UDC PO (18:49)
== END 2024-12-20 19:25 | disposition home or self-care (01) ==
PROVIDERS: Emergency Provider Nurse Practitioner Family; PCP Family Medicine
DX: K27.9 Peptic ulcer, site unspecified, unspecified as acute or chronic, without hemorrhage or perforation (principal); R10.84 Generalized abdominal pain; K59.00 Constipation, unspecified; L64.9 Androgenic alopecia, unspecified
CPT/HCPCS: 74018; 99213; A9270; G0463

== ENCOUNTER 2025-05-02 11:02 | Outpatient (CLI) | payer SELFPAY ==
--- OUTSIDE RECORDS SUMMARY | 2025-05-02 11:32 | XMS_ITS | Clinical Summary ---
Author Organization [facility] [address] Address [address] [place] [phone] Care Team Providers Care Lotteries Agent Name Role Phone Unknown, Notinfile Primary Care Provider Unavail able Erasto Cortés MD Unavailable Allergies No known active allergies Medications sertraline [...] all by elevated prolactin Neurologist consultation advised. Encounters Date Type Department Care Team Description 04/18/2025 7:55 PM INFORMATICIST - 04/18/2025 9:27 PM INFORMATICIST Emergency [facility] Emergency Department [address] [place] [address] Discharge Disposition: Left without being seen from Last 3 Months Immunizations Immunization Administration Dates Next Due Influenza, [...] 0 01/03/2019 Personal Safety Answer Date Recorded Have you ever been in or are you currently in a harmful physical or emotional relationship or is someone making you feel afraid or unsafe? Denies 04/18/2025 Comments Unknown Sex and Gender Information Value Date Recorded Sex Assigned at Not on file Legal Sex Female 9:02 PM INFORMATICIST Gender Identity Not on file Sexual Orientation Not on file Last Filed Vital Signs Vital Sign Reading Time Taken Comments Blood Pressure 95/60 04/18/2025 8:14 PM INFORMATICIST Pulse 95 04/18/2025 8:14 PM INFORMATICIST Temperature 36.6 C (97.9 F) 04/18/2025 8:14 PM INFORMATICIST Respiratory Rate 18 04/18/2025 8:14 PM INFORMATICIST Oxygen Saturation 100% 04/18/2025 8:14 PM INFORMATICIST Inhaled Oxygen Concentration - - Weight 54.4 kg (120 lb) 04/18/2025 8:14 PM INFORMATICIST Height 157.5 cm (5' 2) 04/18/2025 8:12 PM INFORMATICIST Body Mass Index 21.95 04/18/2025 8:12 PM INFORMATICIST Plan of Treatment Health Maintenance Due Date Last Done Comments Cervical Cancer Screening 1995 Hepatitis C Screening 1995 Varicella Vaccines (1 of 2 - 13+ 2-dose series) 08/03/2008 Regular Well Visit/Exam 18-64 08/03/2013 Depression Screening 10/06/2019 10/05/2018, 12/08/2016 Covid-19 Vaccine (3 - Pfizer risk series) 03/02/2021 02/02/2021, 01/12/2021 HPV Vaccines (1 - 3-dose SCD M series) 08/03/2022 Influenza Vaccine (#1) 2025 02/04/2020 DTaP/Tdap/Td Vaccine (3 - Td or Tdap) 11/03/2032 11/03/2022, 12/20/2020 Hepatitis B Screening Completed 04/09/1996 , 1995, 1995 Pneumococcal vaccine <65 Aged Out No longer eligible based on patient's age to complete this topic Procedures Procedure Name Priority Date/Time Associated Diagnosis Comments POCT HCG, URINE Routine 04/18/2025 9:19 PM INFORMATICIST URINALYSIS, MICROSCOPIC ONLY STAT 04/18/2025 9:15 PM INFORMATICIST URINALYSIS AND REFLEX TO MICROSCOPIC AND CULTURE STAT 04/18/2025 9:15 PM INFORMATICIST EGFR STAT 04/18/2025 9:04 PM INFORMATICIST DIFFERENTIAL AUTO STAT 04/18/2025 9:0 4 PM INFORMATICIST TROPONIN T HIGH-SENSITIVITY SERIES (BASELINE, 2HR, 4HR, 6HR) STAT 04/18/2025 9:04 PM INFORMATICIST LIPASE STAT 04/18/2025 9:04 PM INFORMATICIST COMPREHENSIVE METABOLIC PANEL STAT 04/18/2025 9:04 PM INFORMATICIST CBC WITH AUTO DIFFERENTIAL STAT 04/18/2025 9:04 PM INFORMATICIST ECG 12-LEAD STAT 04/18/2025 8:20 PM INFORMATICIST from Last 3 Months Results * POCT hCG, urine (04/18/2025 9:19 PM INFORMATICIST) HCG, ur, POC Negative Negative Lot Number [id number] QC Backgroud Clear Acceptable QC Control Line Acceptable Urine 04/18/2025 9:19 PM INFORMATICIST Miguel Ramirez MD POINT OF CARE TEST ORDERABLE S Final Result * (ABNORMAL) Urinalysis reflex to microscopic and culture Urine (04/18/2025 9:15 PM INFORMATICIST) Color, ur Yellow Yellow Clarity, ur Cloudy(A) Clear [facility] Specific gravity, ur 1.015 1.003 - 1.030 [facility] pH, urine 7.5 [facility] Comment: Interpretive Data U rine pH is affected by diet, medications, systemic acid-base disturbances, and renal tubular function. pH may affect urinary stone formation. For example, urine pH below 6.0 may help reduce the tendency for calcium phosphate stones and pH greater than 6.0 may reduce the tendency for uric acid stone formation. Source: [facility] [address] Current Interpretive Data was last revised on 2017 Protein, ur ql Trace Negative [facility] Glucose, ur ql Negative Negative [facility] Ketones, ur Negative Negative [facility] Bilirubin, ur Negative Negative [facility] Blood, ur Negative Negative [facility] Urobilinogen, ur <2.0 <2.0 mg/dL [facility] Nitrite, ur Negative Negative [facility] Leukocyte esterase, ur Trace(A) Negative [facility] UA reflex comment Reflex to microscopic UA will be performed. [facility] Urine 04/18/2025 9:15 PM INFORMATICIST 04/18/2025 9:20 PM INFORMATICIST us Miguel Ramirez MD LAB MICROBIOLOGY - GENERAL O RDERABLES Final Result Performing Organization Address [facility] Co de Phone Number [facility] [address] [place] [address] * (ABNORMAL) Urinalysis, microscopic only (04/18/2025 9:15 PM INFORMATICIST) WBC, ur 0-5 0 - 5 /HPF RBC, ur 0-2 0 - 2 /HPF [facility] Mucous, ur Present(A) [facility] Culture Reflex Comment Reflex conditions for urine culture (WBC >10) not met. [facility] Urine 04/18/2025 9:15 PM INFORMATICIST 04/18/2025 9:20 PM INFORMATICIST Result [facility] Miguel Ramirez MD LAB URINE ORDERABLES Final R esult Performing Organization Address [facility] de Phone Number [facility] [address] [place] [address] * Troponin T high-sensitivity series (baseline, 2hr, 4hr, 6hr) (04/18/2025 9:04 PM INFORMATICIST) Trop T hs <6 <=14 ng/L Comment: Interpretive Data For further hscTnT resources including the diagnostic algorithm and an aid in interpretation, copy and paste this link: https://nrl.testcatalog.org/show/hsTrop Current Interpretive Data last revised 2020. Blood 04/18/2025 9:04 PM INFORMATICIST 04/18/2025 9:10 PM INFORMATICIST us Miguel Ramirez MD LAB BLOOD ORDERABLES Final R esult Performing Organization Address [facility] Co de Phone Number [facility] [address] [place] [address] * eGFR (04/18/2025 9:04 PM INFORMATICIST) Pathologist [facility] eGFR >90 >=60 mL/min/1. 73 m2 Comment: Interpretive Data Reference Interval Normal >/= 90 mL/min/1.73m2 Mildly decreased* 60 - 89 mL/min/1.73m2 Mildly to moderately decreased 45 - 59 mL/min/1.73m2 Moderately to severely decreased 30 - 44 mL/min/1.73m2 Severely decreased 15 - 29 mL/min/1.73m2 Kidney Failure < 15 mL/min/1.73m2 *Relative to young adult level Estimated glomerular filtration rate is determined by the 2020 CKD-EPI equation recommended by the National Kidney Foundation (A Unifying Approach to GFR Estimation: Recommendations of the NKF-ASK Task Force on Reassessing the Inclusion of Race in Diagnosing Kidney Disease, JASN 2020). The CKD-EPI equation should not be used for patients with unstable renal function and has not been validated in children and those over 70. Current interpretive data was last reviewed 2021. Blood 04/18/2025 9:04 PM INFORMATICIST 04/18/2025 9:10 PM INFORMATICIST us Miguel Ramirez MD LAB BLOOD ORDERABLES Final R esult [facility] [address] [place] [address] * Differential, auto (04/18/2025 9:04 PM INFORMATICIST) Pathologist [facility] Neutrophil abs 3.76 1.50 - 6.50 K/cumm Imm gran abs 0.01 0.00 - 0.10 K/cumm [facility] Lymphocyte abs 1.85 0.80 - 3.30 K/cumm [facility] Monocyte abs 0.46 0.20 - 0.80 K/cumm [facility] Eosinophil abs 0.25 0.00 - 0.50 K/cumm [facility] Basophil abs 0.07 0.00 - 0.10 K/cumm [facility] Neutrophil pct 58.7 % [facility] Comment: Interpretive Data Percent cell count reference ranges are not reported, since discordance with absolute values may lead to misinterpretation of CBC data. Current Interpretive Data was last revised on 2017. Imm gran pct 0.2 % [facility] Comment: Interpretive Data Percent cell count reference ranges are not reported, since discordance with absolute values may lead to misinterpretation of CBC data. Current Interpretive Data was last revised on 2017. Lymphocyte pct 28.9 % [facility] Comment: Interpretive Data Percent cell count reference ranges are not reported, since discordance with absolute values may lead to misinterpretation of CBC data. Current Interpretive Data was last revised on 2017. Monocyte pct 7.2 % [facility] Comment: Interpretive Data Percent cell count reference ranges are not reported, since discordance with absolute values may lead to misinterpretation of CBC data. Current Interpretive Data was last revised on 2017. Eosinophil pct 3.9 % [facility] Comment: Interpretive Data Percent cell count reference ranges are not reported, since discordance with absolute values may lead to misinterpretation of CBC data. Current Interpretive Data was last revised on 2017. Basophil pct 1.1 % [facility] Comment: Interpretive Data Percent cell count reference ranges are not reported, since discordance with absolute values may lead to misinterpretation of CBC data. Current Interpretive Data was last revised on 2017. Blood 04/18/2025 9:04 PM INFORMATICIST 04/18/2025 9:10 PM INFORMATICIST us Miguel Ramirez MD LAB BLOOD ORDERABLES Final R esult [facility] [address] [place] [address] * (ABNORMAL) CBC with auto differential (04/18/2025 9:04 PM INFORMATICIST) WBC 6.40 3.80 - 9.90 K/cumm Hgb 11.7(L) 11.9 - 15.5 g/dL [facility] Hct 36.9 35.6 - 45.5 % [facility] Plt 218 150 - 400 K/cumm [facility] MPV 10.9 9.1 - 12.3 fL [facility] RBC 4.03 3.90 - 5.20 M/cumm [facility] MCV 91.6 81.3 - 96.4 fL [facility] MCH 29.0 27.1 - 33.3 pg [facility] MCHC 31.7(L) 32.3 - 35.7 g/dL [facility] RDW CV 12.9 11.1 - 14.9 % [facility] RDW SD 43.6 35.7 - 48.1 fL [facility] NRBC abs 0.00 0.00 - 0.01 K/cumm [facility] Blood Venous blood specimen / Unknown 04/18/2025 9:04 PM INFORMATICIST 04/18/2025 9:10 PM INFORMATICIST Miguel Ramirez MD LAB BLOOD ORDERABLES Final R esult Performing Organization Address City/[facility]/ZIP Co de Phone Number [facility] [address] [place] [place] [address] * Lipase (04/18/2025 9:04 PM INFORMATICIST) Pathologist [facility] Lipase 25 10 - 99 Units/L Blood Venous blood specimen / Unknown 04/18/2025 9:04 PM INFORMATICIST 04/18/2025 9:10 PM INFORMATICIST Miguel Ramirez MD LAB BLOOD ORDERABLES Final R esult [facility] [address] [place] [address] * Comprehensive metabolic panel (04/18/2025 9:04 PM INFORMATICIST) [facility] Sodium 140 135 - 145 mmol/L Potassium, pl 3.6 3.3 - 4.9 mmol/L [facility] Chloride 106 97 - 110 mmol/L [facility] CO2 25 22 - 32 mmol/L [facility] Anion gap 9 2 - 15 mmol/L [facility] BUN 8 6 - 25 mg/dL [facility] Creatinine 0.76 0.60 - 1.10 mg/dL [facility] Glucose 94 70 - 199 mg/dL [facility] Comment: Interpretive Data Fasting glucose >/= 126 mg/dl is diagnostic for diabetes. Fasting is defined as no caloric intake for at least 8 hours. Fasting glucose between 100 mg/dl to 125 mg/dl is diagnostic of prediabetes. In a patient with classic symptoms of hyperglycemia or hyperglycemic crisis, a random glucose >/= 200 mg/dl is diagnostic for diabetes. In the absence of unequivocal hyperglycemia, results should be confirmed by repeat testing. The classification and Diagnosis of Diabetes Diabetes Care 202; 46: S19-S40. Current interpretive data was last revised 2022. Calcium 8.9 8.5 - 10.3 mg/dL [facility] Bilirubin, total 0.4 0.1 - 1.2 mg/dL [facility] Protein, pl 6.8 6.5 - 8.5 g/dL [facility] Albumin 4.1 3.5 - 5.0 g/dL [facility] Alk phos 67 40 - 130 Units/L [facility] ALT 35 7 - 45 Units/L [facility] AST 36 10 - 45 Units/L [facility] Blood 04/18/2025 9:04 PM INFORMATICIST 04/18/2025 9:10 PM INFORMATICIST Miguel Ramirez MD LAB BLOOD ORDERABLES Final R esult [facility] [address] [place] [address] * ECG 12 lead (04/18/2025 8:20 PM INFORMATICIST) 04/18/2025 8:20 PM INFORMATICIST Narrative [facility] - 04/19/2025 10:11 AM INFORMATICIST Vent Rate: 77 bpm RR Interval: 778 msec [place] Interval: 125 msec QRS Duration: 90 msec QT Interval: 357 msec QTC Interval: 388 msec P-R-T [place]: 79 - 73 - 53 degrees IMPRESSION: SINUS RHYTHM POSSIBLE RIGHT VENTRICULAR CONDUCTION DELAY NONSPECIFIC T-WAVE ABNORMALITY BORDERLINE ECG NO PRIOR TRACING Electronically Signed By: Dr. Kwadwo Romero M.D. us Miguel Ramirez MD ECG ORDERABLES Final Result [facility] [place] from Last 3 Months Insurance [facility] CHOICE [place] PPO [place] Care Teams Lotteries Agent Relationship Specialty Start Date End Date Unknown, Notinfile PCP - General 07/27/23 Erasto Cortés MD [address] [place] [address] Compensation And Benefits Manager 07/27/23
--- OUTSIDE RECORDS SUMMARY | 2025-05-02 11:32 | XMS_ITS | Clinical Summary ---
Author Organization [facility] [employer] Address [address] [place] [address] Care Team Providers Care Search Developer Name Role Phone Maykel Brown MD Primary Care Provider +1- [phone] [facility] [employer],non-owned Affiliates and Associated Physician Practices is amultiple site organization consisting of ambulatory clinics and hospital sitesin [place], [place], [place] and [place]. This disclosure is being madepursuant to the Care Everywhere program and may not contain all information available regarding this patient. Last updated 18.[facility] [employer] Allergies No known active allergies Medications * Be aware that medications may not be up to date on this document. Alwaysverify current medications with the patient. fluticasone propionate (FLONASE) 50 MCG/ACT nasal sprayIndication s:Sore throat [place] 2 (two) sprays into each nostril once [...] Comments Blood Pressure 98/70 05/14/2021 10:43 AM MANAGER SALES Pulse 83 05/14/2021 10:43 AM MANAGER SALES Temperature 36.7 C (98 F) 05/14/2021 10:43 AM MANAGER SALES Respiratory Rate 16 05/14/2021 10:43 AM MANAGER SALES Oxygen Saturation 98% 05/14/2021 10:43 AM MANAGER SALES Inhaled Oxygen Concentration - - Weight 63.5 kg (140 lb) 05/14/2021 10:43 AM MANAGER SALES Height 157.5 cm (5' 2) 05/14/2021 10:43 AM MANAGER SALES Body Mass Index 25.61 05/14/2021 10:43 AM MANAGER SALES Plan of Treatment Health Maintenance Due Date Last Done Comments HIV SCREENING 08/03/2010 HEPATITIS C SCREENING 07/30/2013 DTAP/TDAP/TD VACCINES (1 - Tdap) 08/03/2014 HEPATITIS B VACCINE (1 of 3 - 19+ 3-dose series) 08/03/2014 HPV VACCINE (1 - 3-dose SCDM series) 08/03/2022 DEPRESSION SCREENING 05/15/2024 COVID-19 VACCINE (1 - 2024-2 6 season) 2025 INFLUENZA VACCINE (#1) 2025 ZOSTER VACCINE (1 of 2) 08/03/2045 [...] complete this topic Insurance [employer] Care Teams Search Developer Relationship Specialty Start Date End Date Maykel Brown MD [facility] [place] [address] PCP - General Family Medicine 05/14/21
--- OUTSIDE RECORDS SUMMARY | 2025-05-02 11:32 | XMS_ITS | Clinical Summary ---
Author Organization [facility] Address [address] [place] [address] Care Team Providers Care Manager Furniture Name Role Phone Maykel Brown MD Primary Care Provider +1- [phone] Allergies No known active allergies Medications ALPRAZolam [...] Date Screening examination for STI 10/18/2023 10/23/2023 Immunizations Immunization Administration Dates Next Due Influenza [...] Sex Assigned at Female 06/17/2024 2:30 PM HOGSHEAD INSPECTOR Legal Sex Female 2:39 PM CDT Gender Identity Not on file Sexual Orientation Not on file Last Filed Vital Signs Vital Sign Reading Time Taken Comments Blood Pressure 109/64 06/24/2024 1:06 PM HOGSHEAD INSPECTOR Pulse 85 06/24/2024 1:06 PM HOGSHEAD INSPECTOR Temperature 36.2 C (97.1 F) 06/24/2024 1:06 PM HOGSHEAD INSPECTOR Respiratory Rate 16 06/24/2024 1:06 PM HOGSHEAD INSPECTOR Oxygen Saturation 100% 06/24/2024 1:06 PM HOGSHEAD INSPECTOR Inhaled Oxygen Concentration - - Weight 49.9 kg (110 lb) 06/24/2024 1:06 PM HOGSHEAD INSPECTOR Height 157.5 cm (5' 2) 06/24/2024 1:06 PM HOGSHEAD INSPECTOR Body Mass Index 20.12 06/24/2024 1:06 PM HOGSHEAD INSPECTOR Plan of Treatment Health Maintenance Due Date Last Done Comments Annual Physical 08/03/1998 Hepatitis B Vaccines (1 of 3 - 19+ 3-dose series) 08/03/2014 HPV Vaccines (1 - 3-dose SCD M series) 08/03/2022 PHQ-2 (Physician [place]) 05/15/2024 05/10/2024 COVID-19 Vaccine (3 - 2024-2 6 season) 2025 02/02/2021, 01/12/2021 Influenza Adult (#1) 2025 02/04/2020 Cervical Cancer Screening Pa p Smear (Age 21 to 29) Every 3 Years 07/29/2025 07/29/2022 Cervical Cancer Screening 07/29/2025 DTaP, Tdap and Td Vaccines ( 3 - Td or Tdap) 11/03/2032 11/03/2022, 12/20/2020 Hepatitis C Completed 10/18/2023 Hepatitis A Vaccines Aged Out No long er eligible based [...] RICKIE NON-REACT RICKIE 10/18/2023 10:59 PM CDT [facility] Comment:HBsAg NOT DETECTED. HEP B CORE IGM NON-REACT RICKIE NON-REACT RICKIE 10/18/2023 10:59 PM CDT [facility] Comment: IgM ANTI HBc NOT DETECTED. DOES NOT EXCLUDE THE POSSIBILITY OF EXPOSURE TO OR INFECTION WITH HBV. NO RETEST REQUIRED. HIGH DOSES OF BIOTIN MAY INTERFERE WITH THIS TEST RESULT. CORRELATION TO CLINICAL HISTORY AND PRESENTATION RECOMMENDED. HAV IGM NON-REACT RICKIE NON-REACT RICKIE 10/18/2023 10:59 PM CDT [facility] Comment: IgM ANTI HAV NOT DETECTED. DOES NOT EXCLUDE THE POSSIBILITY OF EXPOSURE TO OR INFECTION WITH HAV. LEVELS OF IgM ANTI HAV MAY BE BELOW THE CUTOFF IN EARLY INFECTION. HEPATITIS C AB NON-REACT RICKIE NON-REACT RICKIE 10/18/2023 10:59 PM CDT [facility] Comment: ANTIBODIES TO HCV NOT DETECTED. DOES NOT EXCLUDE THE POSSIBILITY OF EXPOSURE TO HCV. 10/18/2023 4:04 PM CDT Anastasiia Ramsay SUPERINTENDENT [employer] Final Resul t [facility] [address] [id number], [id number] * PAP SMEAR WITH HPV (07/29/2022) 07/29/2022 [facility] Scanned SCANNING Final Resu lt from Last 3 Months or Most Recently Relevant to Health Maintenance Insurance [facility] Care Teams Manager Furniture Relationship Specialty Start Date End Date Maykel Brown MD [address] [place] [address] [address] PCP - General FAMILY PRACTICE 06/17/24
--- OUTSIDE RECORDS SUMMARY | 2025-05-02 11:32 | XMS_ITS | Clinical Summary ---
Author Organization [facility] Address [address] [place] [phone] Phone Care Team Providers Care Chimney Mechanic Name Role Phone Maykel Brown MD Primary Care Provider +1- [phone] Medications NITROFURANTOIN MONOHYD/M-CRYST ORAL Take by mouth. Active OMEPRAZOLE ORAL Take by mouth. Active ondansetron (ZOFRAN) 4 mg Tablet Take 4 mg by mouth every 8 hours as needed for Nausea/Emes is. Active dextroamphetamin e-amphetamine (ADDERALL) 20 mg tablet Take 20 mg by mouth daily. Active Encounters Date Type Department Care Team Description 03/12/2025 External Device Data [facility] ABSTRACTION Provider, Abstract 03/11/2025 External Device Data [facility] AB[facility]CTION Provider, Abstract 03/11/2025 External Device Data [facility]CTION Provider, Abstract 03/11/2025 External Device Data [facility] Provider, Abstract [...] on file Legal Sex Female 7:02 AM CHIEF COMPRESSOR STATION ENGINEER Gender Identity Not on file Sexual Orientation Not on file Last Filed Vital Signs Vital Sign Reading Time Taken Comments Blood Pressure 106/62 03/23/2024 12:50 PM CHIEF COMPRESSOR STATION ENGINEER Pulse 79 03/23/2024 10:15 AM CHIEF COMPRESSOR STATION ENGINEER Temperature 36.7 C (98.1 F) 03/23/2024 7:05 AM CHIEF COMPRESSOR STATION ENGINEER Respiratory Rate 16 03/23/2024 12:50 PM CHIEF COMPRESSOR STATION ENGINEER Oxygen Saturation 98% 03/23/2024 12:50 PM CHIEF COMPRESSOR STATION ENGINEER Inhaled Oxygen Concentration - - Weight 49.9 kg (110 lb) 03/23/2024 7:05 AM CHIEF COMPRESSOR STATION ENGINEER Height 157.5 cm (5' 2) 03/23/2024 7:05 AM CHIEF COMPRESSOR STATION ENGINEER Body Mass Index 20.12 03/23/2024 7:05 AM CHIEF COMPRESSOR STATION ENGINEER Plan of Treatment Health Maintenance Due Date Last Done Comments HEPATITIS B VACCINES (1 of 3 - 19+ 3-dose series) 08/03/2014 CERVICAL CANCER SCREENING 08/03/2016 HPV/Cotest (21-29) 08/03/2016 PAP SMEAR 08/03/2016 INFLUENZA VACCINE (#1) 2024 DTAP/TDAP/TD VACCINES (3 - Td or Tdap) 11/03/2032, 12/20/2020 HPV VACCINES (No Doses Required) Completed Insurance [facility] PREFERRED Care Teams Chimney Mechanic Relationship Specialty Start Date End Date Maykel Brown MD [address] [place] [phone] PCP - General Family Practice 03/23/24
[2025-05-02 13:24] LABS: Free T3 2.41 pg/mL (2.32-6.09); Free T4 Free Thyroxine 0.74 ng/dL (0.78-2.19)
[2025-05-02 13:38] LABS: Thyroid Stimulating Hormone 1.250 uIU/mL (0.465-4.680)
== END 2025-05-02 11:03 | disposition home or self-care (01) ==
LOC: ANHGOSHLAB 11:03
PROVIDERS: PCP Family Medicine; Visit Provider Nurse Practitioner Family
DX: R53.83 Other fatigue (principal)
CPT/HCPCS: 36415; 84439; 84443; 84481